=== PATIENT | male | born 1935 | race Hispanic/Latino ===

== ENCOUNTER 2016-08-10 14:17 | Inpatient (IN) | payer MEDICARE ==
[2016-08-10] MEDS ORDERED: ROCEPHIN/NS 1 GM/50 ML 1 GM/50 ML BAG IV ONE (16:00)
[2016-08-10 16:11] LABS: Hematocrit 40.7 % (35.5-45.6); Hemoglobin 13.7 gm/dl (11.8-15.2); Mean Corpuscular HGB Conc 34 % (32-34); Mean Corpuscular Hemoglobin 31 pg (28-32); Mean Corpuscular Volume 92 fl (84-94); Platelet Count 200 K/mm3 (140-440); Red Cell Distribution Width 15.2 % (13.2-15.2); White Blood Count 6.6 K/mm3 (4.5-11.0)
--- NOTE | 2016-08-10 16:14 | XRay Report ---
AP chest x-ray. Findings: The heart size is normal with normal pulmonary vascularity. The lungs are free of acute infiltrates. The left hemidiaphragm is slightly elevated. No pleural fluid is seen. Impression: No acute findings.
[2016-08-10 16:15] LABS: Alanine Aminotransferase 8 units/L (7-56); Albumin 3.6 g/dL (3.9-5); Albumin/Globulin Ratio 1.3 %; Alkaline Phosphatase 56 units/L (35-129); Anion Gap 19 mmol/L; BUN/Creatinine Ratio 17.14; Bilirubin,Total 0.5 mg/dL (0.1-1.2); Blood Urea Nitrogen 12 mg/dL (9-20); Calcium 8.7 mg/dL (8.4-10.2); Carbon Dioxide 21 mmol/L (22-30); Chloride 87.7 mmol/L (98-107); Glucose 89 mg/dL (75-100); Potassium 3.9 mmol/L (3.6-5.0); Sodium 124 mmol/L (137-145); Total Protein 6.3 g/dL (6.3-8.2)
--- NOTE | 2016-08-10 16:15 | XRay Report ---
AP pelvis. Findings: No fractures or other acute findings are identified. Bone mineralization is normal. Extensive vascular calcifications are noted. Impression: No acute findings.
[2016-08-10 16:21] LABS: Bilirubin,Direct < 0.2 mg/dL (0-0.2); Bilirubin,Indirect 0.3 mg/dL; INR 1.2 (0.87-1.13)
[2016-08-10 16:24] LABS: ISTAT Base Excess -5; ISTAT DEVICE 0; ISTAT HCO3 19.5; ISTAT PCO2 31.9 (35-45); ISTAT PH 7.394 (7.35-7.45); ISTAT PO2 57 (80-105); ISTAT SO2 90; ISTAT TCO2 20
[2016-08-10] MEDS ORDERED: DUONEB 0.5 MG-3 MG/3 ML SOLN IH ONE (16:24)
[2016-08-10] MEDS ORDERED: MAGNESIUM SULFATE 2GM/50ML 2 GM/50 ML BAG IV ONE (16:25)
[2016-08-10] MEDS ORDERED: NACL 0.9% 1000 ML 1,000 ML IV ONE ×2 (16:41)
--- NOTE | 2016-08-10 16:53 | Admit Criteria Form ---
Admission Criteria Documentation: HYPONATREMIA; HYPERNATREMIA; HYPOKALEMIA; HYPERKALEMIA; HYPOCALCEMIA; HYPERCALCEMIA Clinical Indications for Inpatient Care (Place 'X' for any and all applicable criteria): Ongoing inpatient care may be indicated for ANY ONE of the following [G](1)(2)(3 )(5): [ X]I. Hyponatremia with ANY ONE of the following: [ X]a) Sodium less than 130 mEq/L (mmol/L) (new) (6)(22) [ ]b) Sodium less than 135 mEq/L (mmol/L) with ANY ONE of the following: [ ]i) Severe medical etiology requiring inpatient management (eg, heart failure, hypovolemia) [ ]ii) Altered mental status [ ]iii) Seizures [ ]II. Hypernatremia with ANY ONE of the following: [ ]a) Sodium greater than 155 mEq/L (mmol/L) [ ]b) Sodium greater than 150 mEq/L (mmol/L) with ANY ONE of the following: [ ] i) Altered mental status [ ]ii) Seizures [ ]iii) Severe medical etiology (eg, hypovolemia, diabetes insipidus) [ ]iv) Severe weakness [ ]v) Severe medical etiology (eg, hemolysis, infection, drug overdose) [ ]III. Hypokalemia with ANY ONE of the following: [ ]a) Potassium less than 2.5 mEq/L (mmol/L) despite outpatient and emergency treatment [ ]b) Potassium less than 3.0 mEq/L (mmol/L) with ANY ONE of the following: [ ]i) Weakness [ ]ii) Cardiac abnormality (eg, arrhythmia, conduction disturbance) [ ]iii) Cardiac ischemia [ ]iv) Ileus [ ]v) Ongoing medical cause requiring inpatient management. ( e.g., acute renal wasting, SIADH) [ ]vi) Other severe symptoms [ ] IV. Hyperkalemia with ANY ONE of the following: [ ]a) Potassium greater than 6.5 mEq/L (mmol/L) [ ]b) Potassium greater than 5 mEq/L (mmol/L) with ANY ONE of the following: [ ]i) Severe ECG findings [H] [ ]ii) Acute worsening of renal failure (creatinine greater than 2.5 mg/dL (221 micromoles/L) or significant elevation for age and size) [ ] V. Hypocalcemia with ANY ONE of the following: [ ]a) Calcium less than 7 mg/dL (1.75 mmol/L) despite outpatient and emergency treatment(19) [ ]b) Calcium less than 8 mg/dL (2 mmol/L) with significant symptoms or findings; examples include: [ ]i) Cardiac abnormality (eg, arrhythmia or conduction disturbance) [ ]ii) Altered mental status [ ]iii) Seizures [ ]iv) Breathing difficulty [ ]v) Muscle spasms [ ]. Hypercalcemia with ANY ONE of the following: [ ]a) Calcium greater than 14 mg/dL (3.5 mmol/L) [ ]b) Calcium greater than 12 mg/dL (3 mmol/L) with ANY ONE of the following: [ ]i) Significant dehydration or hypovolemia as indicated by ANY ONE of the following(2): [ ]1. Clinically significant dehydration as indicated by ANY ONE of the following: [ ]A. Acute loss of weight from baseline (5% of body weight in adults, 9% in pediatric patients) [ ]B. Hemodynamic instability [ ]C. Acute renal failure [ ]D. Serum sodium greater than 150 mEq/L (mmol/L) [ ]2) Dehydration that is persistent indicated by ALL of the following: [ ]A. Oral rehydration therapy not tolerated or insufficient to adequately correct dehydration [ ]B. Appropriate intravenous treatment (eg, fluids ) does not readily correct dehydration ie, after 12 to 24 hours of treatment) [ ]ii) Significant symptoms or findings; examples include: [ ]1) Altered mental status [ ]2) Cardiac abnormality (eg, arrhythmia, conduction disturbance) [ ]3) Cardiac abnormality (eg, arrhythmia, conduction disturbance) The original [facility] content created by [employer] has been revised. The portions of the content which have been revised are identified through the use of italic text or in bold, and [facility] has neither reviewed nor approved the modified material. All other unmodified content is copyright [facility] [employer] Please see references footnoted in the original [facility] edition 2016 Admission Criteria Met: Yes
[2016-08-10 17:01] LABS: Basophils % (Manual) 0 % (0.0-1.8); Blastocytes % (Manual) 0 %; Eosinophils % (Manual) 0 % (0.0-4.3)
[2016-08-10 17:02] LABS: Diff Status Complete; Platelet Estimate Consistent w Auto; RBC Morphology Normal
[2016-08-10 17:04] LABS: Bilirubin,Urine NEG (Negative); Blood,Urine LG (Negative); Ketones,Urine TR mg/dL (Negative); Leukocyte Esterase,Urine NEG (Negative); Mucus,Urine FEW /HPF; Nitrite,Urine NEG (Negative); Urobilinogen,Urine < 2.0 mg/dL (<2.0)
[2016-08-10] MEDS ORDERED: TYLENOL ONE (18:15)
[2016-08-10] MEDS ORDERED: TYLENOL PO ONE (18:22)
--- NOTE | 2016-08-10 18:31 | Emergency Department Report ---
ED General Adult HPI - General Chief complaint: Altered Mental Status Stated complaint: AMS Source: patient, family, EMS Mode of arrival: Stretcher Limitations: Altered Mental Status - History of Present Illness Initial comments: According to the patient's family by he was up and fully ambulatory yesterday. Today he was unable to get out of bed. There was no history of fall. There was no history of focal weakness. Apparently the patient does have a temperature of 101.1. The family did not note any fever or chills. Today he has been confused and acting bizarrely. He was brought to the emergency department for further evaluation. -: Gradual, hour(s) Severity scale (0 -10): 0 Consistency: intermittent Improves with: none Worsens with: none Associated Symptoms: confusion Treatments Prior to Arrival: none - Related Data Home Medications Medication Instructions Recorded Confirmed Last Taken Aspirin EC [Aspirin Enteric Coated 81 mg PO QDAY 08/10/16 08/10/16 08/09/16 TAB] Losartan [Cozaar] 100 mg PO QDAY 08/10/16 08/10/16 08/09/16 Propranolol [Inderal] 80 mg PO QDAY 08/10/16 08/10/16 08/09/16 amLODIPine [Norvasc] 5 mg PO DAILY 08/10/16 08/10/16 08/09/16 Allergies Allergy/AdvReac Type Severity Reaction Status Date / Time No Known Allergies Allergy Verified 08/10/16 14:49 ED Review of Systems ROS: Stated complaint: AMS Other details as noted in HPI Comment: Unobtainable due to pts medical conditions ED Past Medical Hx - Past Medical History Previous Medical History?: Yes Hx COPD: Yes Hx Dementia: Yes Additional medical history: abdominal aneurysm. umbilical hernia - Surgical History Past Surgical History?: Yes Additional Surgical History: Cervical spine surgery. Previous nephrectomy for kidney cancer - Social History Smoking Status: Current Every Day Smoker Substance Use Type: Alcohol - Medications Home Medications: Home Medications Medication Instructions Recorded Confirmed Last Taken Type Aspirin EC [Aspirin Enteric Coated 81 mg PO QDAY 08/10/16 08/10/16 08/09/16 History TAB] Losartan [Cozaar] 100 mg PO QDAY 08/10/16 08/10/16 08/09/16 History Propranolol [Inderal] 80 mg PO QDAY 08/10/16 08/10/16 08/09/16 History amLODIPine [Norvasc] 5 mg PO DAILY 08/10/16 08/10/16 08/09/16 History ED Physical Exam - General Limitations: Altered Mental Status General appearance: other (confused) - Head Head exam: Present: atraumatic, normocephalic - Eye Eye exam: Present: normal appearance. Absent: scleral icterus - ENT ENT exam: Present: mucous membranes moist - Neck Neck exam: Present: normal inspection - Respiratory Respiratory exam: Present: wheezes, decreased breath sounds, other (very increased AP diameter/barrel chest) - Cardiovascular Cardiovascular Exam: Present: regular rate, normal rhythm. Absent: systolic murmur, diastolic murmur, rubs, gallop - GI/Abdominal GI/Abdominal exam: Present: soft, normal bowel sounds, hernia (large reducible right inguinal hernia). Absent: distended, tenderness, guarding, rebound - Neurological Exam Neurological exam: Present: other (no apparent focal deficits) - Psychiatric Psychiatric exam: Present: anxious, flat affect - Skin Skin exam: Present: warm, dry, intact, normal color. Absent: rash ED Course Vital Signs 08/10/16 08/10/16 08/10/16 14:49 14:59 15:58 Temperature 101.1 F H Pulse Rate 84 100 H Pulse Rate [ Anterior Bilateral Throughout] Respiratory 22 22 20 Rate Respiratory Rate [Anterior Bilateral Throughout] Blood Pressure 141/100 Blood Pressure 141/100 126/75 [left arm] O2 Sat by Pulse 94 94 96 Oximetry 08/10/16 08/10/16 08/10/16 16:36 16:44 16:50 Temperature Pulse Rate 93 H 86 Pulse Rate [ 83 Anterior Bilateral Throughout] Respiratory 30 H 34 H Rate Respiratory 20 Rate [Anterior Bilateral Throughout] Blood Pressure Blood Pressure [left arm] O2 Sat by Pulse 97 95 Oximetry 08/10/16 08/10/16 08/10/16 17:00 17:10 17:20 Temperature Pulse Rate 98 H 98 H 106 H Pulse Rate [ 92 H Anterior Bilateral Throughout] Respiratory 32 H 33 H 29 H Rate Respiratory 20 Rate [Anterior Bilateral Throughout] Blood Pressure 114/81 114/81 Blood Pressure [left arm] O2 Sat by Pulse 96 97 94 Oximetry 08/10/16 08/10/16 08/10/16 17:30 17:40 17:51 Temperature Pulse Rate 99 H 94 H Pulse Rate [ Anterior Bilateral Throughout] Respiratory 31 H 27 H 28 H Rate Respiratory Rate [Anterior Bilateral Throughout] Blood Pressure 114/81 114/81 Blood Pressure [left arm] O2 Sat by Pulse 92 92 Oximetry 08/10/16 08/10/16 08/10/16 18:01 18:11 18:21 Temperature 99.4 F Pulse Rate 101 H 85 Pulse Rate [ Anterior Bilateral Throughout] Respiratory 27 H 28 H Rate Respiratory Rate [Anterior Bilateral Throughout] Blood Pressure 124/81 124/81 Blood Pressure [left arm] O2 Sat by Pulse 91 Oximetry - Reevaluation(s) Reevaluation #1: Patient was found to be substantially hyponatremic. He is somewhat via depleted. He was started on IV fluids. Blood cultures were obtained. His lactic acid level was normal. His white blood cell count was normal. His chest x-ray and urine did not show any focus of infection. He was given steroids magnesium and DuoNeb nebs for his COPD exacerbation. He was admitted to the hospitalist service further care and evaluation. Dr. Blanchard did come to see him. He was admitted by Dr. Ambriz. Did order a CT of his head in consideration of his unexplained hyponatremia as well as altered mental status. 08/10/16 18:58 Reevaluation #2: Reexamination the patient's respiratory status had improved. His respiratory rate was diminished and his lungs sounded clear. 08/10/16 19:00 ED Medical Decision Making - Lab Data Result diagrams: 08/10/16 15:28 08/10/16 15:28 Critical care attestation.: If time is entered above; I have spent that time in minutes in the direct care of this critically ill patient, excluding procedure time. ED Disposition Clinical Impression: COPD with exacerbation, Hypoxia, Hyponatremia Altered mental status Qualifiers: Altered mental status type: delirium Qualified Code(s): R41.0 - Disorientation , unspecified Disposition: OP ADMITTED IP TO THIS HOSP Is pt being admited?: Yes Does the pt Need Aspirin: No (not until CT of the head can be cleared) Instructions: Chronic Obstructive Pulmonary Disease (ED) Referrals: PRIMARY CARE, [Primary Care Provider] - 3-5 Days Time of Disposition: 19:01
--- NOTE | 2016-08-10 19:37 | Cat Scan Report ---
FINAL REPORT EXAM: CT HEAD/BRAIN WO CON HISTORY: ams TECHNIQUE: CT head without contrast PRIORS: None. FINDINGS: No acute intra-axial or extra-axial hemorrhage is identified. There is no evidence of midline shift or mass effect. The ventricles and sulci are within normal limits. Weber-white matter differentiation is intact. No acute parenchymal abnormalities seen. There are patchy and confluent hypodensities within the supratentorial white matter. Is complete opacification of the left maxillary sinus with expansile lesion extending into nasal cavity likely reflecting a mucocele. 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
--- NOTE | 2016-08-10 20:49 | History and Physical Report ---
History of Present Illness Date of examination: 08/10/16 Date of admission: 08/10/2016 Chief complaint: Increasing SOB Alteredd Sensorium Unable to walk for one day History of present illness: 81 y/o WM with hx of HTN COPD brought in by family for altered sensorium and increasing SOB.Also unable to walk since AM. Fever of 101. Continues to smoke pack a day.Cough productive of mucoid sputum.No trauma. Past History Past Medical History: COPD, hypertension, other (Dementia AAA umblical hernia) Medications and Allergies Allergies Allergy/AdvReac Type Severity Reaction Status Date / Time No Known Allergies Allergy Verified 08/10/16 14:49 Home Medications Medication Instructions Recorded Confirmed Last Taken Type Aspirin EC [Aspirin Enteric Coated 81 mg PO QDAY 08/10/16 08/10/16 08/09/16 History TAB] Losartan [Cozaar] 100 mg PO QDAY 08/10/16 08/10/16 08/09/16 History Propranolol [Inderal] 80 mg PO QDAY 08/10/16 08/10/16 08/09/16 History amLODIPine [Norvasc] 5 mg PO DAILY 08/10/16 08/10/16 08/09/16 History Active Meds: Active Medications Sodium Chloride (Nacl 0.9% 1000 Ml) 1,000 mls @ 125 mls/hr IV ONCE ONE Stop: 08/11/16 00:40 Last Admin: 08/10/16 19:51 Dose: 125 mls/hr Review of Systems All systems: negative Constitutional: fever, fatigue, weakness Cardiovascular: shortness of breath Respiratory: cough with sputum, shortness of breath, dyspnea on exertion, congestion, wheezing Musculoskeletal: muscle weakness (Both Lower extremity weakness), muscle cramps Exam - Constitutional Vitals: Temp Pulse Resp BP Pulse Ox 99.4 F 91 H 18 127/86 96 08/10/16 18:21 08/10/16 19:15 08/10/16 19:15 08/10/16 19:15 08/10/16 19:15 General appearance: Present: no acute distress, well-nourished - EENT Eyes: Present: PERRL ENT: hearing intact, clear oral mucosa - Neck Neck: Present: supple, normal ROM - Respiratory Respiratory effort: normal Respiratory: bilateral: CTA, rhonchi, wheezing - Cardiovascular Heart Sounds: Present: S1 & S2. Absent: rub, click - Extremities Extremities: pulses symmetrical, No edema Peripheral Pulses: within normal limits - Abdominal General gastrointestinal: Present: soft, non-tender, non-distended, normal bowel sounds Male genitourinary: Present: normal - Integumentary Integumentary: Present: clear, warm, dry - Musculoskeletal Musculoskeletal: gait normal, strength equal bilaterally - Psychiatric Psychiatric: appropriate mood/affect, cooperative - Neurologic Neurologic: CNII-XII intact, moves all extremities - Allied Health Allied health notes reviewed: nursing Results - Labs CBC & Chem 7: 08/10/16 15:28 08/10/16 15:28 Labs: Abnormal lab results 08/10/16 08/10/16 08/10/16 Range/Units 15:28 15:28 15:28 Lymphocytes % (Manual) 7.0 L (13.4-35.0) % Monocytes % (Manual) 26.0 H (0.0-7.3) % Lymphocytes # (Manual) 0.5 L (1.2-5.4) K/mm3 Monocytes # (Manual) 1.7 H (0.0-0.8) K/mm3 PT 15.1 H (12.2-14.9) Sec. INR 1.20 H (0.87-1.13) APTT 38.0 H (24.2-36.6) Sec. POC ABG pCO2 (35-45) POC ABG pO2 (80-105) Sodium 124 L (137-145) mmol/L Chloride 87.7 L (98-107) mmol/L Carbon Dioxide 21 L (22-30) mmol/L Creatinine 0.7 L (0.8-1.5) mg/dL Albumin 3.6 L (3.9-5) g/dL 08/10/16 Range/Units 16:12 Lymphocytes % (Manual) (13.4-35.0) % Monocytes % (Manual) (0.0-7.3) % Lymphocytes # (Manual) (1.2-5.4) K/mm3 Monocytes # (Manual) (0.0-0.8) K/mm3 PT (12.2-14.9) Sec. INR (0.87-1.13) APTT (24.2-36.6) Sec. POC ABG pCO2 31.9 L (35-45) POC ABG pO2 57 L (80-105) Sodium (137-145) mmol/L Chloride (98-107) mmol/L Carbon Dioxide (22-30) mmol/L Creatinine (0.8-1.5) mg/dL Albumin (3.9-5) g/dL Short CBC 08/10/16 Range/Units 15:28 WBC 6.6 (4.5-11.0) K/mm3 Hgb 13.7 (11.8-15.2) gm/dl Hct 40.7 (35.5-45.6) % Plt Count 200 (140-440) K/mm3 BMP 08/10/16 15:28 Sodium 124 L Potassium 3.9 Chloride 87.7 L Carbon Dioxide 21 L BUN 12 Creatinine 0.7 L Glucose 89 Calcium 8.7 Liver Function 08/10/16 Range/Units 15:28 Total Bilirubin 0.5 (0.1-1.2) mg/dL Direct Bilirubin < 0.2 (0-0.2) mg/dL AST 22 (5-40) units/L ALT 8 (7-56) units/L Alkaline Phosphatase 56 (35-129) units/L Albumin 3.6 L (3.9-5) g/dL Urine 08/10/16 Range/Units Unknown Urine Color Yellow (Yellow) Urine pH 6.0 (5.0-7.0) Ur Specific [place] 1.013 (1.003-1.030) Urine Protein 100 mg/dl (Negative) mg/dL Urine Glucose (UA) Neg (Negative) mg/dL - Imaging and Cardiology EKG: report reviewed (Non specific ST T wave changes) Chest x-ray: report reviewed (No acute process) Assessment and Plan - Patient Problems (1) COPD with exacerbation Current Visit: Yes Status: Acute Plan to address problem: ABX +Steroids+Duonebs (2) Altered mental status Current Visit: Yes Status: Acute Qualifiers: Altered mental status type: delirium Coma depth: C Coma timing: C Qualified Code(s): R41.0 - Disorientation, unspecified Plan to address problem: Swc to Hypoxia (3) Hyponatremia Current Visit: Yes Status: Acute Plan to address problem: 3 percent saline at 40 ml /hr for a total of 500 Urine lytes ordered. R/o SIADH Not on any diuretics (4) HTN (hypertension) Current Visit: Yes Status: Chronic Qualifiers: Hypertension type: essential hypertension Qualified Code(s): I10 - Essential (primary) hypertension Plan to address problem: Cont anti hypertensives loartan and Amlodipine. Will hold/DC propranolol because of obstructive airway disease.Will increase Norvasc to 10 mg po qd (5) Hypoxia Current Visit: Yes Status: Acute Plan to address problem: Supplemenal O2 (6) Debility Current Visit: Yes Status: Acute Plan to address problem: Sec to Hyponatremia.Should be able to walk once Na is corrected.PT ordered (7) DVT prophylaxis Current Visit: Yes Status: Acute Plan to address problem: Lovenox 40 mg sq qd
[2016-08-10] MEDS ORDERED: MILK OF MAGNESIA PO PRN (20:50)
[2016-08-10] MEDS ORDERED: DULCOLAX PR PRN (20:50)
[2016-08-10] MEDS ORDERED: DILAUDID IV PRN (20:50)
[2016-08-10] MEDS ORDERED: TYLENOL PO PRN (20:50)
[2016-08-10] MEDS ORDERED: AMBIEN PO PRN (20:50)
[2016-08-10] MEDS ORDERED: PERCOCET 5/325 PO PRN (20:50)
[2016-08-10] MEDS ORDERED: ZOFRAN IV PRN (20:50)
[2016-08-10] MEDS ORDERED: DUONEB 0.5 MG-3 MG/3 ML SOLN IH PRN (20:59)
[2016-08-10] MEDS ORDERED: NON-FORMULARY (Losartan [Cozaar] 100 MG) PO SCH (21:00)
[2016-08-10] MEDS ORDERED: NACL 0.9% 1000 ML 1,000 ML IV SCH (21:00)
[2016-08-10] MEDS ORDERED: PROVENTIL IH PRN (21:15)
[2016-08-10] MEDS: NORVASC PO SCH (21:54)
[2016-08-10] MEDS ORDERED: NACL 3% 500 ML IV ONE (22:00)
[2016-08-10] MEDS: DUONEB 0.5 MG-3 MG/3 ML SOLN IH SCH (22:13)
[2016-08-10] MEDS: ROCEPHIN/NS 2 GM/100 ML 2 GM/100 ML BAG IV SCH (23:21)
[2016-08-10] MEDS: INDERAL PO SCH (23:22)
[2016-08-10] MEDS: COZAAR PO SCH ×2 (23:23→23:28)
[2016-08-10] MEDS: ZITHROMAX 500 MG in NACL 0.9% 250ML 250 ML IV SCH (23:30)
[2016-08-11] MEDS: DUONEB 0.5 MG-3 MG/3 ML SOLN IH SCH ×4 (02:29→20:15)
[2016-08-11 02:54] LABS: Basophils % (Auto) 0.3 % (0.0-1.8); Hematocrit 40.1 % (35.5-45.6); Hemoglobin 13.4 gm/dl (11.8-15.2); Mean Corpuscular HGB Conc 33 % (32-34); Mean Corpuscular Hemoglobin 31 pg (28-32); Mean Corpuscular Volume 92 fl (84-94); Platelet Count 180 K/mm3 (140-440); Red Blood Count 4.37 M/mm3 (3.65-5.03); White Blood Count 4.8 K/mm3 (4.5-11.0)
[2016-08-11 03:19] LABS: Alanine Aminotransferase 9 units/L (7-56); Albumin 3.1 g/dL (3.9-5); Albumin/Globulin Ratio 1.3 %; Alkaline Phosphatase 47 units/L (35-129); Anion Gap 18 mmol/L; BUN/Creatinine Ratio 17.14; Bilirubin,Total 0.2 mg/dL (0.1-1.2); Blood Urea Nitrogen 12 mg/dL (9-20); Calcium 8.1 mg/dL (8.4-10.2); Carbon Dioxide 21 mmol/L (22-30); Chloride 96.7 mmol/L (98-107); Glucose 126 mg/dL (75-100); Potassium 3.6 mmol/L (3.6-5.0); Sodium 132 mmol/L (137-145); Total Protein 5.5 g/dL (6.3-8.2)
[2016-08-11] MEDS: INDERAL PO SCH (10:00)
[2016-08-11] MEDS: HALFPRIN EC PO SCH (10:20)
[2016-08-11] MEDS: COZAAR PO SCH (10:21)
[2016-08-11] MEDS: NORVASC PO SCH (10:22)
--- NOTE | 2016-08-11 18:58 | Progress Note ---
Assessment and Plan Assessment and plan: Patient is a 81 y/o WM with hx of HTN, Dementia, COPD brought in by family for altered sensorium and increasing SOB, and nonproductive cough. Also unable to walk since AM. Fever of 101 noted on hospital admission.Continues to smoke pack a day.Cough productive of mucoid sputum.No trauma. * Sepsis possible secondary to bronchitis * Baseline dementia although with altered sensorium likely secondary to sepsis- the family patient normally sharp and not unruly as he has been in the past day * Acute metabolic encephalopathy * COPD with acute exacerbation * Hyponatremia rule out SIADH * Hypertension * Acute respiratory failure with hypoxia * Debility with gait abnormality Plan * Continue antibiotics, steroids, DuoNeb's * Follow culture no growth until now. * Sodium level improved will discontinue 3% normal saline. * Fall precautions * Physical therapy evaluate and treat * We'll continue to hold propranolol due to COPD * Continue blood pressure control and losartan and Norvasc * DVT and GI prophylaxis * Discussed case in detail with the patient and family * Incentive spirometer ( History Interval history: Follow-up encephalopathy, pneumonia, shortness of breath Patient seen and examined this morning in no acute distress, waxing and waning mentation. Reports improvement in shortness of breath. But not yet at baseline. Family reports patient has been having mean streak. Denies any chest pain, nausea, vomiting, diarrhea No fever noted blood pressure controlled No adverse events reported to me by nursing staff Hospitalist Physical - Physical exam Narrative exam: VITAL SIGNS: Reviewed. GENERAL: The patient appeared well nourished and normally developed. Vital signs as documented. HEAD: No signs of head trauma. EYES: Pupils are equal. Extraocular motions intact. EARS: Hearing grossly intact. MOUTH: Oropharynx is normal. NECK: No adenopathy, no JVD. CHEST: Chest with crackles breath sounds bilaterally. No wheezes CARDIAC: Regular rate and rhythm. S1 and S2, without murmurs, gallops, or rubs. VASCULAR: 1+ pitting edema. Peripheral pulses normal and equal in all extremities. ABDOMEN: Soft, without detectable tenderness. No sign of distention. No rebound or guarding, and no masses palpated. Bowel Sounds normal. MUSCULOSKELETAL: Good range of motion of all major joints. Extremities without clubbing, cyanosis. 1+ pitting edema. NEUROLOGIC EXAM: Alert and oriented x 3. No focal sensory or strength deficits. Speech normal. Follows commands. PSYCHIATRIC: Mood normal. SKIN: Age appropriate wrinkles some blemishes. Focused exam noted, good capillary refill less than 2 seconds - Constitutional Vitals: Temp Pulse Resp BP Pulse Ox 98.5 F 63 20 149/84 96 08/11/16 04:35 08/11/16 17:54 08/11/16 17:54 08/11/16 17:54 08/11/16 17:54 General appearance: Present: no acute distress, well-nourished Results - Labs CBC & Chem 7: 08/11/16 02:19 08/11/16 17:42 Labs: Laboratory Last Values WBC 4.8 K/mm3 (4.5-11.0) 08/11/16 02:19 RBC 4.37 M/mm3 (3.65-5.03) 08/11/16 02:19 Hgb 13.4 gm/dl (11.8-15.2) 08/11/16 02:19 Hct 40.1 % (35.5-45.6) 08/11/16 02:19 MCV 92 fl (84-94) 08/11/16 02:19 MCH 31 pg (28-32) 08/11/16 02:19 MCHC 33 % (32-34) 08/11/16 02:19 RDW 15.0 % (13.2-15.2) 08/11/16 02:19 Plt Count 180 K/mm3 (140-440) 08/11/16 02:19 Lymph % (Auto) 6.7 % (13.4-35.0) L 08/11/16 02:19 [place] % (Auto) 4.8 % (0.0-7.3) 08/11/16 02:19 Eos % (Auto) 0.0 % (0.0-4.3) 08/11/16 02:19 Baso % (Auto) 0.3 % (0.0-1.8) 08/11/16 02:19 Lymph # 0.3 K/mm3 (1.2-5.4) L 08/11/16 02:19 [place] # 0.2 K/mm3 (0.0-0.8) 08/11/16 02:19 Eos # 0.0 K/mm3 (0.0-0.4) 08/11/16 02:19 Baso # 0.0 K/mm3 (0.0-0.1) 08/11/16 02:19 Add Manual Diff Complete 08/10/16 15:28 Total Counted 100 08/10/16 15:28 Seg Neutrophils % 88.2 % (40.0-70.0) H 08/11/16 02:19 Seg Neuts % (Manual) 67.0 % (40.0-70.0) 08/10/16 15:28 Band Neutrophils % 0 % 08/10/16 15:28 Lymphocytes % (Manual) 7.0 % (13.4-35.0) L 08/10/16 15:28 Reactive Lymphs % (Man) 0 % 08/10/16 15:28 Monocytes % (Manual) 26.0 % (0.0-7.3) H 08/10/16 15:28 Eosinophils % (Manual) 0 % (0.0-4.3) 08/10/16 15:28 Basophils % (Manual) 0 % (0.0-1.8) 08/10/16 15:28 Metamyelocytes % 0 % 08/10/16 15:28 Myelocytes % 0 % 08/10/16 15:28 Promyelocytes % 0 % 08/10/16 15:28 Blast Cells % 0 % 08/10/16 15:28 Nucleated RBC % Not Reportable 08/10/16 15:28 Seg Neutrophils # 4.3 K/mm3 (1.8-7.7) 08/11/16 02:19 Seg Neutrophils # Man 4.4 K/mm3 (1.8-7.7) 08/10/16 15:28 Band Neutrophils # 0.0 K/mm3 08/10/16 15:28 Lymphocytes # (Manual) 0.5 K/mm3 (1.2-5.4) L 08/10/16 15:28 Abs React Lymphs (Man) 0.0 K/mm3 08/10/16 15:28 Monocytes # (Manual) 1.7 K/mm3 (0.0-0.8) H 08/10/16 15:28 Eosinophils # (Manual) 0.0 K/mm3 (0.0-0.4) 08/10/16 15:28 Basophils # (Manual) 0.0 K/mm3 (0.0-0.1) 08/10/16 15:28 Metamyelocytes # 0.0 K/mm3 08/10/16 15:28 Myelocytes # 0.0 K/mm3 08/10/16 15:28 Promyelocytes # 0.0 K/mm3 08/10/16 15:28 Blast Cells # 0.0 K/mm3 08/10/16 15:28 WBC Morphology Not Reportable 08/10/16 15:28 Hypersegmented Neuts Not Reportable 08/10/16 15:28 Hyposegmented Neuts Not Reportable 08/10/16 15:28 Hypogranular Neuts Not Reportable 08/10/16 15:28 Smudge Cells Not Reportable 08/10/16 15:28 Toxic Granulation Not Reportable 08/10/16 15:28 Toxic Vacuolation Not Reportable 08/10/16 15:28 Dohle Bodies Not Reportable 08/10/16 15:28 Pelger-Huet Anomaly Not Reportable 08/10/16 15:28 Mónica Rods Not Reportable 08/10/16 15:28 Platelet Estimate Consistent w auto 08/10/16 15:28 Clumped Platelets Not Reportable 08/10/16 15:28 Plt Clumps, EDTA Not Reportable 08/10/16 15:28 Large Platelets Not Reportable 08/10/16 15:28 Giant Platelets Not Reportable 08/10/16 15:28 Platelet Satelliting Not Reportable 08/10/16 15:28 Plt Morphology Comment Not Reportable 08/10/16 15:28 RBC Morphology Normal 08/10/16 15:28 Dimorphic RBCs Not Reportable 08/10/16 15:28 Polychromasia Not Reportable 08/10/16 15:28 Hypochromasia Not Reportable 08/10/16 15:28 Poikilocytosis Not Reportable 08/10/16 15:28 Anisocytosis Not Reportable 08/10/16 15:28 Microcytosis Not Reportable 08/10/16 15:28 Macrocytosis Not Reportable 08/10/16 15:28 Spherocytes Not Reportable 08/10/16 15:28 Pappenheimer Bodies Not Reportable 08/10/16 15:28 Sickle Cells Not Reportable 08/10/16 15:28 Target Cells Not Reportable 08/10/16 15:28 Tear Drop Cells Not Reportable 08/10/16 15:28 Ovalocytes Not Reportable 08/10/16 15:28 Helmet Cells Not Reportable 08/10/16 15:28 [place] Bodies Not Reportable 08/10/16 15:28 [place] Rings Not Reportable 08/10/16 15:28 [place] Cells Not Reportable 08/10/16 15:28 Bite Cells Not Reportable 08/10/16 15:28 Crenated Cell Not Reportable 08/10/16 15:28 Elliptocytes Not Reportable 08/10/16 15:28 Acanthocytes (Spur) Not Reportable 08/10/16 15:28 Rouleaux Not Reportable 08/10/16 15:28 Hemoglobin C Crystals Not Reportable 08/10/16 15:28 Schistocytes Not Reportable 08/10/16 15:28 Malaria parasites Not Reportable 08/10/16 15:28 Fabricio Bodies Not Reportable 08/10/16 15:28 Hem Pathologist Commnt No 08/10/16 15:28 PT 15.1 Sec. (12.2-14.9) H 08/10/16 15:28 INR 1.20 (0.87-1.13) H 08/10/16 15:28 APTT 38.0 Sec. (24.2-36.6) H 08/10/16 15:28 POC ABG pH 7.394 (7.35-7.45) 08/10/16 16:12 POC ABG pCO2 31.9 (35-45) L 08/10/16 16:12 POC ABG pO2 57 (80-105) L 08/10/16 16:12 POC ABG HCO3 19.5 08/10/16 16:12 POC ABG Total CO2 20 08/10/16 16:12 POC ABG O2 Sat 90 08/10/16 16:12 POC ABG Base Excess -5 08/10/16 16:12 FiO2 21 % 08/10/16 16:12 Sodium 135 mmol/L (137-145) L 08/11/16 17:42 Potassium 3.6 mmol/L (3.6-5.0) 08/11/16 02:19 Chloride 96.7 mmol/L (98-107) L 08/11/16 02:19 Carbon Dioxide 21 mmol/L (22-30) L 08/11/16 02:19 Anion Gap 18 mmol/L 08/11/16 02:19 BUN 12 mg/dL (9-20) 08/11/16 02:19 Creatinine 0.7 mg/dL (0.8-1.5) L 08/11/16 02:19 Estimated GFR > 60 ml/min 08/11/16 02:19 BUN/Creatinine Ratio 17.14 % 08/11/16 02:19 Glucose 126 mg/dL (75-100) H 08/11/16 02:19 Lactic Acid 1.3 mmol/L (0.7-2.0) 08/10/16 18:12 Calcium 8.1 mg/dL (8.4-10.2) L 08/11/16 02:19 Total Bilirubin 0.2 mg/dL (0.1-1.2) 08/11/16 02:19 Direct Bilirubin < 0.2 mg/dL (0-0.2) 08/10/16 15:28 Indirect Bilirubin 0.3 mg/dL 08/10/16 15:28 AST 26 units/L (5-40) 08/11/16 02:19 ALT 9 units/L (7-56) 08/11/16 02:19 Alkaline Phosphatase 47 units/L (35-129) 08/11/16 02:19 Troponin T 0.014 ng/mL (0.00-0.029) 08/11/16 02:19 NT-Pro-B Natriuret Pep 3115 pg/mL (0-900) H 08/10/16 15:28 Total Protein 5.5 g/dL (6.3-8.2) L 08/11/16 02:19 Albumin 3.1 g/dL (3.9-5) L 08/11/16 02:19 Albumin/Globulin Ratio 1.3 % 08/11/16 02:19 Urine Color Yellow (Yellow) 08/10/16 Unknown Urine Turbidity Clear (Clear) 08/10/16 Unknown Urine pH 6.0 (5.0-7.0) 08/10/16 Unknown Ur Specific [place] 1.013 (1.003-1.030) 08/10/16 Unknown Urine Protein 100 mg/dl mg/dL (Negative) 08/10/16 Unknown Urine Glucose (UA) Neg mg/dL (Negative) 08/10/16 Unknown Urine Ketones Tr mg/dL (Negative) 08/10/16 Unknown Urine Blood Lg (Negative) 08/10/16 Unknown Urine Nitrite Neg (Negative) 08/10/16 Unknown Urine Bilirubin Neg (Negative) 08/10/16 Unknown Urine Urobilinogen < 2.0 mg/dL (<2.0) 08/10/16 Unknown Ur Leukocyte Esterase Neg (Negative) 08/10/16 Unknown Urine WBC (Auto) 1.0 /HPF (0.0-6.0) 08/10/16 Unknown Urine RBC (Auto) 24.0 /HPF (0.0-6.0) 08/10/16 Unknown Urine Mucus Few /HPF 08/10/16 Unknown - Imaging and Cardiology Chest x-ray: image reviewed (no acute pathology)
[2016-08-12] MEDS: ROCEPHIN/NS 2 GM/100 ML 2 GM/100 ML BAG IV SCH ×2 (01:43→22:39)
[2016-08-12] MEDS: DUONEB 0.5 MG-3 MG/3 ML SOLN IH SCH ×4 (01:56→20:17)
[2016-08-12] MEDS: ZITHROMAX 500 MG in NACL 0.9% 250ML 250 ML IV SCH ×2 (02:18→22:40)
[2016-08-12 06:12] LABS: Anion Gap 19 mmol/L; Blood Urea Nitrogen 15 mg/dL (9-20); Calcium 8.2 mg/dL (8.4-10.2); Carbon Dioxide 23 mmol/L (22-30); Chloride 98.9 mmol/L (98-107); Glucose 136 mg/dL (75-100); Potassium 3.6 mmol/L (3.6-5.0); Sodium 137 mmol/L (137-145)
[2016-08-12] MEDS: INDERAL PO SCH (09:45)
[2016-08-12] MEDS: HALFPRIN EC PO SCH (09:45)
[2016-08-12] MEDS: COZAAR PO SCH (09:45)
[2016-08-12] MEDS: NORVASC PO SCH (09:45)
--- NOTE | 2016-08-12 16:30 | Progress Note ---
Assessment and Plan Assessment and plan: Patient is a 81 y/o WM with hx of HTN, Dementia, COPD brought in by family for altered sensorium and increasing SOB, and nonproductive cough. Also unable to walk since AM. Fever of 101 noted on hospital admission.Continues to smoke pack a day.Cough productive of mucoid sputum.No trauma. * Sepsis possible secondary to bronchitis * Baseline dementia although with altered sensorium likely secondary to sepsis- the family patient normally sharp and not unruly as he has been in the past day * Acute metabolic encephalopathy * COPD with acute exacerbation * Hyponatremia rule out SIADH * Hypertension * Acute respiratory failure with hypoxia * Debility with gait abnormality Plan * Continue antibiotics, steroids, DuoNeb's * Continue restraints * Follow culture no growth until now. * Reviewed sodium changes only improved by 12 mEq in the first 24 hours. * Discussed with primary care physician * We'll discontinue Solu-Medrol and opioids * Fall precautions * Physical therapy evaluate and treat * We'll continue to hold propranolol due to COPD * Continue blood pressure control and losartan and Norvasc * DVT and GI prophylaxis * Discussed case in detail with the patient and family * Continue telemetry and also IV fluids at this time patient tolerated some by mouth * Incentive spirometer ( History Interval history: Follow-up encephalopathy, pneumonia, shortness of breath Patient seen and examined this morning in no acute distress, waxing and waning mentation. He was severely delirious last night requiring safety measures. Although the patient recognizes me today. Still recognizes family members. I did speak with his primary physician. Denies any chest pain, nausea, vomiting, diarrhea No fever noted blood pressure controlled No adverse events reported to me by nursing staff Hospitalist Physical - Physical exam Narrative exam: VITAL SIGNS: Reviewed. GENERAL: The patient appeared well nourished and normally developed. Vital signs as documented. HEAD: No signs of head trauma. EYES: Pupils are equal. Extraocular motions intact. EARS: Hearing grossly intact. MOUTH: Oropharynx is normal. NECK: No adenopathy, no JVD. CHEST: Chest with crackles breath sounds bilaterally. No wheezes CARDIAC: Regular rate and rhythm. S1 and S2, without murmurs, gallops, or rubs. VASCULAR: 1+ pitting edema. Peripheral pulses normal and equal in all extremities. ABDOMEN: Soft, without detectable tenderness. No sign of distention. No rebound or guarding, and no masses palpated. Bowel Sounds normal. MUSCULOSKELETAL: Good range of motion of all major joints. Extremities without clubbing, cyanosis. 1+ pitting edema. NEUROLOGIC EXAM: Alert and oriented x 3. Intermittent delirium No focal sensory or strength deficits. Speech normal. Follows commands. PSYCHIATRIC: Mood normal. SKIN: Age appropriate wrinkles some blemishes. Focused exam noted, good capillary refill less than 2 seconds - Constitutional Vitals: Temp Pulse Resp BP Pulse Ox 98.2 F 87 22 157/91 94 08/12/16 13:35 08/12/16 13:35 08/12/16 13:35 08/12/16 13:35 08/12/16 13:35 General appearance: Present: no acute distress, well-nourished Results - Labs CBC & Chem 7: 08/11/16 02:19 08/12/16 04:55 Labs: Laboratory Last Values WBC 4.8 K/mm3 (4.5-11.0) 08/11/16 02:19 RBC 4.37 M/mm3 (3.65-5.03) 08/11/16 02:19 Hgb 13.4 gm/dl (11.8-15.2) 08/11/16 02:19 Hct 40.1 % (35.5-45.6) 08/11/16 02:19 MCV 92 fl (84-94) 08/11/16 02:19 MCH 31 pg (28-32) 08/11/16 02:19 MCHC 33 % (32-34) 08/11/16 02:19 RDW 15.0 % (13.2-15.2) 08/11/16 02:19 Plt Count 180 K/mm3 (140-440) 08/11/16 02:19 Lymph % (Auto) 6.7 % (13.4-35.0) L 08/11/16 02:19 [place] % (Auto) 4.8 % (0.0-7.3) 08/11/16 02:19 Eos % (Auto) 0.0 % (0.0-4.3) 08/11/16 02:19 Baso % (Auto) 0.3 % (0.0-1.8) 08/11/16 02:19 Lymph # 0.3 K/mm3 (1.2-5.4) L 08/11/16 02:19 [place] # 0.2 K/mm3 (0.0-0.8) 08/11/16 02:19 Eos # 0.0 K/mm3 (0.0-0.4) 08/11/16 02:19 Baso # 0.0 K/mm3 (0.0-0.1) 08/11/16 02:19 Add Manual Diff Complete 08/10/16 15:28 Total Counted 100 08/10/16 15:28 Seg Neutrophils % 88.2 % (40.0-70.0) H 08/11/16 02:19 Seg Neuts % (Manual) 67.0 % (40.0-70.0) 08/10/16 15:28 Band Neutrophils % 0 % 08/10/16 15:28 Lymphocytes % (Manual) 7.0 % (13.4-35.0) L 08/10/16 15:28 Reactive Lymphs % (Man) 0 % 08/10/16 15:28 Monocytes % (Manual) 26.0 % (0.0-7.3) H 08/10/16 15:28 Eosinophils % (Manual) 0 % (0.0-4.3) 08/10/16 15:28 Basophils % (Manual) 0 % (0.0-1.8) 08/10/16 15:28 Metamyelocytes % 0 % 08/10/16 15:28 Myelocytes % 0 % 08/10/16 15:28 Promyelocytes % 0 % 08/10/16 15:28 Blast Cells % 0 % 08/10/16 15:28 Nucleated RBC % Not Reportable 08/10/16 15:28 Seg Neutrophils # 4.3 K/mm3 (1.8-7.7) 08/11/16 02:19 Seg Neutrophils # Man 4.4 K/mm3 (1.8-7.7) 08/10/16 15:28 Band Neutrophils # 0.0 K/mm3 08/10/16 15:28 Lymphocytes # (Manual) 0.5 K/mm3 (1.2-5.4) L 08/10/16 15:28 Abs React Lymphs (Man) 0.0 K/mm3 08/10/16 15:28 Monocytes # (Manual) 1.7 K/mm3 (0.0-0.8) H 08/10/16 15:28 Eosinophils # (Manual) 0.0 K/mm3 (0.0-0.4) 08/10/16 15:28 Basophils # (Manual) 0.0 K/mm3 (0.0-0.1) 08/10/16 15:28 Metamyelocytes # 0.0 K/mm3 08/10/16 15:28 Myelocytes # 0.0 K/mm3 08/10/16 15:28 Promyelocytes # 0.0 K/mm3 08/10/16 15:28 Blast Cells # 0.0 K/mm3 08/10/16 15:28 WBC Morphology Not Reportable 08/10/16 15:28 Hypersegmented Neuts Not Reportable 08/10/16 15:28 Hyposegmented Neuts Not Reportable 08/10/16 15:28 Hypogranular Neuts Not Reportable 08/10/16 15:28 Smudge Cells Not Reportable 08/10/16 15:28 Toxic Granulation Not Reportable 08/10/16 15:28 Toxic Vacuolation Not Reportable 08/10/16 15:28 Dohle Bodies Not Reportable 08/10/16 15:28 Pelger-Huet Anomaly Not Reportable 08/10/16 15:28 Mónica Rods Not Reportable 08/10/16 15:28 Platelet Estimate Consistent w auto 08/10/16 15:28 Clumped Platelets Not Reportable 08/10/16 15:28 Plt Clumps, EDTA Not Reportable 08/10/16 15:28 Large Platelets Not Reportable 08/10/16 15:28 Giant Platelets Not Reportable 08/10/16 15:28 Platelet Satelliting Not Reportable 08/10/16 15:28 Plt Morphology Comment Not Reportable 08/10/16 15:28 RBC Morphology Normal 08/10/16 15:28 Dimorphic RBCs Not Reportable 08/10/16 15:28 Polychromasia Not Reportable 08/10/16 15:28 Hypochromasia Not Reportable 08/10/16 15:28 Poikilocytosis Not Reportable 08/10/16 15:28 Anisocytosis Not Reportable 08/10/16 15:28 Microcytosis Not Reportable 08/10/16 15:28 Macrocytosis Not Reportable 08/10/16 15:28 Spherocytes Not Reportable 08/10/16 15:28 Pappenheimer Bodies Not Reportable 08/10/16 15:28 Sickle Cells Not Reportable 08/10/16 15:28 Target Cells Not Reportable 08/10/16 15:28 Tear Drop Cells Not Reportable 08/10/16 15:28 Ovalocytes Not Reportable 08/10/16 15:28 Helmet Cells Not Reportable 08/10/16 15:28 [place] Bodies Not Reportable 08/10/16 15:28 [place] Rings Not Reportable 08/10/16 15:28 [place] Cells Not Reportable 08/10/16 15:28 Bite Cells Not Reportable 08/10/16 15:28 Crenated Cell Not Reportable 08/10/16 15:28 Elliptocytes Not Reportable 08/10/16 15:28 Acanthocytes (Spur) Not Reportable 08/10/16 15:28 Rouleaux Not Reportable 08/10/16 15:28 Hemoglobin C Crystals Not Reportable 08/10/16 15:28 Schistocytes Not Reportable 08/10/16 15:28 Malaria parasites Not Reportable 08/10/16 15:28 Fabricio Bodies Not Reportable 08/10/16 15:28 Hem Pathologist Commnt No 08/10/16 15:28 PT 15.1 Sec. (12.2-14.9) H 08/10/16 15:28 INR 1.20 (0.87-1.13) H 08/10/16 15:28 APTT 38.0 Sec. (24.2-36.6) H 08/10/16 15:28 POC ABG pH 7.394 (7.35-7.45) 08/10/16 16:12 POC ABG pCO2 31.9 (35-45) L 08/10/16 16:12 POC ABG pO2 57 (80-105) L 08/10/16 16:12 POC ABG HCO3 19.5 08/10/16 16:12 POC ABG Total CO2 20 08/10/16 16:12 POC ABG O2 Sat 90 08/10/16 16:12 POC ABG Base Excess -5 08/10/16 16:12 FiO2 21 % 08/10/16 16:12 Sodium 137 mmol/L (137-145) 08/12/16 04:55 Potassium 3.6 mmol/L (3.6-5.0) 08/12/16 04:55 Chloride 98.9 mmol/L (98-107) 08/12/16 04:55 Carbon Dioxide 23 mmol/L (22-30) 08/12/16 04:55 Anion Gap 19 mmol/L 08/12/16 04:55 BUN 15 mg/dL (9-20) 08/12/16 04:55 Creatinine 0.6 mg/dL (0.8-1.5) L 08/12/16 04:55 Estimated GFR > 60 ml/min 08/12/16 04:55 BUN/Creatinine Ratio 25.00 % 08/12/16 04:55 Glucose 136 mg/dL (75-100) H 08/12/16 04:55 POC Glucose 134 (70-105) H 08/11/16 21:52 Lactic Acid 1.3 mmol/L (0.7-2.0) 08/10/16 18:12 Calcium 8.2 mg/dL (8.4-10.2) L 08/12/16 04:55 Total Bilirubin 0.2 mg/dL (0.1-1.2) 08/11/16 02:19 Direct Bilirubin < 0.2 mg/dL (0-0.2) 08/10/16 15:28 Indirect Bilirubin 0.3 mg/dL 08/10/16 15:28 AST 26 units/L (5-40) 08/11/16 02:19 ALT 9 units/L (7-56) 08/11/16 02:19 Alkaline Phosphatase 47 units/L (35-129) 08/11/16 02:19 Troponin T 0.014 ng/mL (0.00-0.029) 08/11/16 02:19 NT-Pro-B Natriuret Pep 3115 pg/mL (0-900) H 08/10/16 15:28 Total Protein 5.5 g/dL (6.3-8.2) L 08/11/16 02:19 Albumin 3.1 g/dL (3.9-5) L 08/11/16 02:19 Albumin/Globulin Ratio 1.3 % 08/11/16 02:19 Urine Color Yellow (Yellow) 08/10/16 Unknown Urine Turbidity Clear (Clear) 08/10/16 Unknown Urine pH 6.0 (5.0-7.0) 08/10/16 Unknown Ur Specific [place] 1.013 (1.003-1.030) 08/10/16 Unknown Urine Protein 100 mg/dl mg/dL (Negative) 08/10/16 Unknown Urine Glucose (UA) Neg mg/dL (Negative) 08/10/16 Unknown Urine Ketones Tr mg/dL (Negative) 08/10/16 Unknown Urine Blood Lg (Negative) 08/10/16 Unknown Urine Nitrite Neg (Negative) 08/10/16 Unknown Urine Bilirubin Neg (Negative) 08/10/16 Unknown Urine Urobilinogen < 2.0 mg/dL (<2.0) 08/10/16 Unknown Ur Leukocyte Esterase Neg (Negative) 08/10/16 Unknown Urine WBC (Auto) 1.0 /HPF (0.0-6.0) 08/10/16 Unknown Urine RBC (Auto) 24.0 /HPF (0.0-6.0) 08/10/16 Unknown Urine Mucus Few /HPF 08/10/16 Unknown
[2016-08-12] MEDS ORDERED: HABITROL TD ONE (21:51)
[2016-08-13] MEDS: DUONEB 0.5 MG-3 MG/3 ML SOLN IH SCH ×4 (03:01→20:00)
[2016-08-13] MEDS: HALFPRIN EC PO SCH (11:14)
[2016-08-13] MEDS: NORVASC PO SCH (11:15)
[2016-08-13] MEDS: COZAAR PO SCH (11:17)
--- NOTE | 2016-08-13 15:37 | Progress Note ---
Assessment and Plan Assessment and plan: Patient is a 81 y/o WM with hx of HTN, Dementia, COPD brought in by family for altered sensorium and increasing SOB, and nonproductive cough. Also unable to walk since AM. Fever of 101 noted on hospital admission.Continues to smoke pack a day.Cough productive of mucoid sputum.No trauma. * Sepsis possible secondary to bronchitis * Baseline dementia although with altered sensorium likely secondary to sepsis- the family patient normally sharp and not unruly as he has been in the past day * Acute metabolic encephalopathy * COPD with acute exacerbation * Hyponatremia rule out SIADH * Hypertension * Acute respiratory failure with hypoxia * Debility with gait abnormality Plan * Clinically improving. Continue antibiotics, steroids, DuoNeb's * Anticipate discharge Monday schedule a separate facility. * Repeat chest x-ray in 4-6 weeks shows patient * Follow culture no growth until now. * Reviewed sodium changes only improved by 12 mEq in the first 24 hours. * Discussed with primary care physician * Continue to hold Solu-Medrol and opioids * Fall precautions * Physical therapy evaluate and treat * Continue blood pressure control and losartan and Norvasc * DVT and GI prophylaxis * Discussed case in detail with the patient and family * Continue telemetry and also IV fluids at this time patient tolerated some by mouth * Incentive spirometer ( History Interval history: Follow-up encephalopathy, pneumonia, shortness of breath Patient seen and examined this morning in no acute distress, mentation improved this morning. Less delirious overnight. Restraints off. Denies any chest pain, nausea, vomiting, diarrhea No fever noted blood pressure controlled No adverse events reported to me by nursing staff Hospitalist Physical - Physical exam Narrative exam: VITAL SIGNS: Reviewed. GENERAL: The patient appeared well nourished and normally developed. Vital signs as documented. HEAD: No signs of head trauma. EYES: Pupils are equal. Extraocular motions intact. EARS: Hearing grossly intact. MOUTH: Oropharynx is normal. NECK: No adenopathy, no JVD. CHEST: Chest with crackles breath sounds bilaterally. No wheezes CARDIAC: Regular rate and rhythm. S1 and S2, without murmurs, gallops, or rubs. VASCULAR: Trace edema. Peripheral pulses normal and equal in all extremities. ABDOMEN: Soft, without detectable tenderness. No sign of distention. No rebound or guarding, and no masses palpated. Bowel Sounds normal. MUSCULOSKELETAL: Good range of motion of all major joints. Extremities without clubbing, cyanosis. Trace edema. NEUROLOGIC EXAM: Alert and oriented x 3. Intermittent delirium No focal sensory or strength deficits. Speech normal. Follows commands. PSYCHIATRIC: Mood normal. SKIN: Age appropriate wrinkles some blemishes. Focused exam noted, good capillary refill less than 2 seconds - Constitutional Vitals: Temp Pulse Resp BP Pulse Ox 97.9 F 53 L 18 126/90 96 08/13/16 09:26 08/13/16 13:25 08/13/16 13:25 08/13/16 11:17 08/13/16 09:26 General appearance: Present: no acute distress, well-nourished Results - Labs CBC & Chem 7: 08/11/16 02:19 08/12/16 04:55 Labs: Laboratory Last Values WBC 4.8 K/mm3 (4.5-11.0) 08/11/16 02:19 RBC 4.37 M/mm3 (3.65-5.03) 08/11/16 02:19 Hgb 13.4 gm/dl (11.8-15.2) 08/11/16 02:19 Hct 40.1 % (35.5-45.6) 08/11/16 02:19 MCV 92 fl (84-94) 08/11/16 02:19 MCH 31 pg (28-32) 08/11/16 02:19 MCHC 33 % (32-34) 08/11/16 02:19 RDW 15.0 % (13.2-15.2) 08/11/16 02:19 Plt Count 180 K/mm3 (140-440) 08/11/16 02:19 Lymph % (Auto) 6.7 % (13.4-35.0) L 08/11/16 02:19 [place] % (Auto) 4.8 % (0.0-7.3) 08/11/16 02:19 Eos % (Auto) 0.0 % (0.0-4.3) 08/11/16 02:19 Baso % (Auto) 0.3 % (0.0-1.8) 08/11/16 02:19 Lymph # 0.3 K/mm3 (1.2-5.4) L 08/11/16 02:19 [place] # 0.2 K/mm3 (0.0-0.8) 08/11/16 02:19 Eos # 0.0 K/mm3 (0.0-0.4) 08/11/16 02:19 Baso # 0.0 K/mm3 (0.0-0.1) 08/11/16 02:19 Add Manual Diff Complete 08/10/16 15:28 Total Counted 100 08/10/16 15:28 Seg Neutrophils % 88.2 % (40.0-70.0) H 08/11/16 02:19 Seg Neuts % (Manual) 67.0 % (40.0-70.0) 08/10/16 15:28 Band Neutrophils % 0 % 08/10/16 15:28 Lymphocytes % (Manual) 7.0 % (13.4-35.0) L 08/10/16 15:28 Reactive Lymphs % (Man) 0 % 08/10/16 15:28 Monocytes % (Manual) 26.0 % (0.0-7.3) H 08/10/16 15:28 Eosinophils % (Manual) 0 % (0.0-4.3) 08/10/16 15:28 Basophils % (Manual) 0 % (0.0-1.8) 08/10/16 15:28 Metamyelocytes % 0 % 08/10/16 15:28 Myelocytes % 0 % 08/10/16 15:28 Promyelocytes % 0 % 08/10/16 15:28 Blast Cells % 0 % 08/10/16 15:28 Nucleated RBC % Not Reportable 08/10/16 15:28 Seg Neutrophils # 4.3 K/mm3 (1.8-7.7) 08/11/16 02:19 Seg Neutrophils # Man 4.4 K/mm3 (1.8-7.7) 08/10/16 15:28 Band Neutrophils # 0.0 K/mm3 08/10/16 15:28 Lymphocytes # (Manual) 0.5 K/mm3 (1.2-5.4) L 08/10/16 15:28 Abs React Lymphs (Man) 0.0 K/mm3 08/10/16 15:28 Monocytes # (Manual) 1.7 K/mm3 (0.0-0.8) H 08/10/16 15:28 Eosinophils # (Manual) 0.0 K/mm3 (0.0-0.4) 08/10/16 15:28 Basophils # (Manual) 0.0 K/mm3 (0.0-0.1) 08/10/16 15:28 Metamyelocytes # 0.0 K/mm3 08/10/16 15:28 Myelocytes # 0.0 K/mm3 08/10/16 15:28 Promyelocytes # 0.0 K/mm3 08/10/16 15:28 Blast Cells # 0.0 K/mm3 08/10/16 15:28 WBC Morphology Not Reportable 08/10/16 15:28 Hypersegmented Neuts Not Reportable 08/10/16 15:28 Hyposegmented Neuts Not Reportable 08/10/16 15:28 Hypogranular Neuts Not Reportable 08/10/16 15:28 Smudge Cells Not Reportable 08/10/16 15:28 Toxic Granulation Not Reportable 08/10/16 15:28 Toxic Vacuolation Not Reportable 08/10/16 15:28 Dohle Bodies Not Reportable 08/10/16 15:28 Pelger-Huet Anomaly Not Reportable 08/10/16 15:28 Mónica Rods Not Reportable 08/10/16 15:28 Platelet Estimate Consistent w auto 08/10/16 15:28 Clumped Platelets Not Reportable 08/10/16 15:28 Plt Clumps, EDTA Not Reportable 08/10/16 15:28 Large Platelets Not Reportable 08/10/16 15:28 Giant Platelets Not Reportable 08/10/16 15:28 Platelet Satelliting Not Reportable 08/10/16 15:28 Plt Morphology Comment Not Reportable 08/10/16 15:28 RBC Morphology Normal 08/10/16 15:28 Dimorphic RBCs Not Reportable 08/10/16 15:28 Polychromasia Not Reportable 08/10/16 15:28 Hypochromasia Not Reportable 08/10/16 15:28 Poikilocytosis Not Reportable 08/10/16 15:28 Anisocytosis Not Reportable 08/10/16 15:28 Microcytosis Not Reportable 08/10/16 15:28 Macrocytosis Not Reportable 08/10/16 15:28 Spherocytes Not Reportable 08/10/16 15:28 Pappenheimer Bodies Not Reportable 08/10/16 15:28 Sickle Cells Not Reportable 08/10/16 15:28 Target Cells Not Reportable 08/10/16 15:28 Tear Drop Cells Not Reportable 08/10/16 15:28 Ovalocytes Not Reportable 08/10/16 15:28 Helmet Cells Not Reportable 08/10/16 15:28 [place] Bodies Not Reportable 08/10/16 15:28 [place] Rings Not Reportable 08/10/16 15:28 [place] Cells Not Reportable 08/10/16 15:28 Bite Cells Not Reportable 08/10/16 15:28 Crenated Cell Not Reportable 08/10/16 15:28 Elliptocytes Not Reportable 08/10/16 15:28 Acanthocytes (Spur) Not Reportable 08/10/16 15:28 Rouleaux Not Reportable 08/10/16 15:28 Hemoglobin C Crystals Not Reportable 08/10/16 15:28 Schistocytes Not Reportable 08/10/16 15:28 Malaria parasites Not Reportable 08/10/16 15:28 Fabricio Bodies Not Reportable 08/10/16 15:28 Hem Pathologist Commnt No 08/10/16 15:28 PT 15.1 Sec. (12.2-14.9) H 08/10/16 15:28 INR 1.20 (0.87-1.13) H 08/10/16 15:28 APTT 38.0 Sec. (24.2-36.6) H 08/10/16 15:28 POC ABG pH 7.394 (7.35-7.45) 08/10/16 16:12 POC ABG pCO2 31.9 (35-45) L 08/10/16 16:12 POC ABG pO2 57 (80-105) L 08/10/16 16:12 POC ABG HCO3 19.5 08/10/16 16:12 POC ABG Total CO2 20 08/10/16 16:12 POC ABG O2 Sat 90 08/10/16 16:12 POC ABG Base Excess -5 08/10/16 16:12 FiO2 21 % 08/10/16 16:12 Sodium 137 mmol/L (137-145) 08/12/16 04:55 Potassium 3.6 mmol/L (3.6-5.0) 08/12/16 04:55 Chloride 98.9 mmol/L (98-107) 08/12/16 04:55 Carbon Dioxide 23 mmol/L (22-30) 08/12/16 04:55 Anion Gap 19 mmol/L 08/12/16 04:55 BUN 15 mg/dL (9-20) 08/12/16 04:55 Creatinine 0.6 mg/dL (0.8-1.5) L 08/12/16 04:55 Estimated GFR > 60 ml/min 08/12/16 04:55 BUN/Creatinine Ratio 25.00 % 08/12/16 04:55 Glucose 136 mg/dL (75-100) H 08/12/16 04:55 POC Glucose 134 (70-105) H 08/11/16 21:52 Lactic Acid 1.3 mmol/L (0.7-2.0) 08/10/16 18:12 Calcium 8.2 mg/dL (8.4-10.2) L 08/12/16 04:55 Total Bilirubin 0.2 mg/dL (0.1-1.2) 08/11/16 02:19 Direct Bilirubin < 0.2 mg/dL (0-0.2) 08/10/16 15:28 Indirect Bilirubin 0.3 mg/dL 08/10/16 15:28 AST 26 units/L (5-40) 08/11/16 02:19 ALT 9 units/L (7-56) 08/11/16 02:19 Alkaline Phosphatase 47 units/L (35-129) 08/11/16 02:19 Troponin T 0.014 ng/mL (0.00-0.029) 08/11/16 02:19 NT-Pro-B Natriuret Pep 3115 pg/mL (0-900) H 08/10/16 15:28 Total Protein 5.5 g/dL (6.3-8.2) L 08/11/16 02:19 Albumin 3.1 g/dL (3.9-5) L 08/11/16 02:19 Albumin/Globulin Ratio 1.3 % 08/11/16 02:19 Urine Color Yellow (Yellow) 08/10/16 Unknown Urine Turbidity Clear (Clear) 08/10/16 Unknown Urine pH 6.0 (5.0-7.0) 08/10/16 Unknown Ur Specific [place] 1.013 (1.003-1.030) 08/10/16 Unknown Urine Protein 100 mg/dl mg/dL (Negative) 08/10/16 Unknown Urine Glucose (UA) Neg mg/dL (Negative) 08/10/16 Unknown Urine Ketones Tr mg/dL (Negative) 08/10/16 Unknown Urine Blood Lg (Negative) 08/10/16 Unknown Urine Nitrite Neg (Negative) 08/10/16 Unknown Urine Bilirubin Neg (Negative) 08/10/16 Unknown Urine Urobilinogen < 2.0 mg/dL (<2.0) 08/10/16 Unknown Ur Leukocyte Esterase Neg (Negative) 08/10/16 Unknown Urine WBC (Auto) 1.0 /HPF (0.0-6.0) 08/10/16 Unknown Urine RBC (Auto) 24.0 /HPF (0.0-6.0) 08/10/16 Unknown Urine Mucus Few /HPF 08/10/16 Unknown
[2016-08-13] MEDS: INDERAL PO SCH (20:30)
[2016-08-13] MEDS: ZITHROMAX 500 MG in NACL 0.9% 250ML 250 ML IV SCH (22:25)
[2016-08-13] MEDS: ROCEPHIN/NS 2 GM/100 ML 2 GM/100 ML BAG IV SCH (22:26)
[2016-08-14] MEDS: DUONEB 0.5 MG-3 MG/3 ML SOLN IH SCH ×4 (01:46→19:24)
--- NOTE | 2016-08-14 08:31 | Progress Note ---
Assessment and Plan Assessment and plan: Patient is a 81 y/o WM with hx of HTN, Dementia, COPD brought in by family for altered sensorium and increasing SOB, and nonproductive cough. Also unable to walk since AM. Fever of 101 noted on hospital admission.Continues to smoke pack a day.Cough productive of mucoid sputum.No trauma. * Sepsis possible secondary to bronchitis * Baseline dementia although with altered sensorium likely secondary to sepsis- the family patient normally sharp and not unruly as he has been in the past day * Acute metabolic encephalopathy * COPD with acute exacerbation * Hyponatremia rule out SIADH * Hypertension * Acute respiratory failure with hypoxia * Debility with gait abnormality Plan * Clinically improving. Continue antibiotics, steroids, DuoNeb's * Anticipate discharge Monday to senior care facility. * Repeat chest x-ray in 4-6 weeks shows patient * Follow culture no growth until now. * Reviewed sodium changes only improved by 12 mEq in the first 24 hours. * Discussed with primary care physician * Continue to hold Solu-Medrol and opioids * Fall precautions * Physical therapy evaluate and treat * Continue blood pressure control and losartan and Norvasc * DVT and GI prophylaxis * Discussed case in detail with the patient and family * Continue telemetry and also IV fluids at this time patient tolerated some by mouth * Incentive spirometer * Placement in am ( History Interval history: Follow-up encephalopathy, pneumonia, shortness of breath Patient seen and examined this morning in no acute distress, mentation improved this morning. Awaiting placement Denies any chest pain, nausea, vomiting, diarrhea No fever noted blood pressure controlled No adverse events reported to me by nursing staff Hospitalist Physical - Physical exam Narrative exam: VITAL SIGNS: Reviewed. GENERAL: The patient appeared well nourished and normally developed. Vital signs as documented. HEAD: No signs of head trauma. EYES: Pupils are equal. Extraocular motions intact. EARS: Hearing grossly intact. MOUTH: Oropharynx is normal. NECK: No adenopathy, no JVD. CHEST: Chest with crackles breath sounds bilaterally. No wheezes CARDIAC: Regular rate and rhythm. S1 and S2, without murmurs, gallops, or rubs. VASCULAR: Trace edema. Peripheral pulses normal and equal in all extremities. ABDOMEN: Soft, without detectable tenderness. No sign of distention. No rebound or guarding, and no masses palpated. Bowel Sounds normal. MUSCULOSKELETAL: Good range of motion of all major joints. Extremities without clubbing, cyanosis. Trace edema. NEUROLOGIC EXAM: Alert and oriented x 3. Intermittent delirium No focal sensory or strength deficits. Speech normal. Follows commands. PSYCHIATRIC: Mood normal. SKIN: Age appropriate wrinkles some blemishes. Focused exam noted, good capillary refill less than 2 seconds - Constitutional Vitals: Temp Pulse Resp BP Pulse Ox 97.9 F 84 18 129/96 96 08/14/16 01:33 08/14/16 02:07 08/14/16 02:07 08/14/16 01:33 08/14/16 01:33 General appearance: Present: no acute distress, well-nourished Results - Labs CBC & Chem 7: 08/11/16 02:19 08/12/16 04:55 Labs: Laboratory Last Values WBC 4.8 K/mm3 (4.5-11.0) 08/11/16 02:19 RBC 4.37 M/mm3 (3.65-5.03) 08/11/16 02:19 Hgb 13.4 gm/dl (11.8-15.2) 08/11/16 02:19 Hct 40.1 % (35.5-45.6) 08/11/16 02:19 MCV 92 fl (84-94) 08/11/16 02:19 MCH 31 pg (28-32) 08/11/16 02:19 MCHC 33 % (32-34) 08/11/16 02:19 RDW 15.0 % (13.2-15.2) 08/11/16 02:19 Plt Count 180 K/mm3 (140-440) 08/11/16 02:19 Lymph % (Auto) 6.7 % (13.4-35.0) L 08/11/16 02:19 [place] % (Auto) 4.8 % (0.0-7.3) 08/11/16 02:19 Eos % (Auto) 0.0 % (0.0-4.3) 08/11/16 02:19 Baso % (Auto) 0.3 % (0.0-1.8) 08/11/16 02:19 Lymph # 0.3 K/mm3 (1.2-5.4) L 08/11/16 02:19 [place] # 0.2 K/mm3 (0.0-0.8) 08/11/16 02:19 Eos # 0.0 K/mm3 (0.0-0.4) 08/11/16 02:19 Baso # 0.0 K/mm3 (0.0-0.1) 08/11/16 02:19 Add Manual Diff Complete 08/10/16 15:28 Total Counted 100 08/10/16 15:28 Seg Neutrophils % 88.2 % (40.0-70.0) H 08/11/16 02:19 Seg Neuts % (Manual) 67.0 % (40.0-70.0) 08/10/16 15:28 Band Neutrophils % 0 % 08/10/16 15:28 Lymphocytes % (Manual) 7.0 % (13.4-35.0) L 08/10/16 15:28 Reactive Lymphs % (Man) 0 % 08/10/16 15:28 Monocytes % (Manual) 26.0 % (0.0-7.3) H 08/10/16 15:28 Eosinophils % (Manual) 0 % (0.0-4.3) 08/10/16 15:28 Basophils % (Manual) 0 % (0.0-1.8) 08/10/16 15:28 Metamyelocytes % 0 % 08/10/16 15:28 Myelocytes % 0 % 08/10/16 15:28 Promyelocytes % 0 % 08/10/16 15:28 Blast Cells % 0 % 08/10/16 15:28 Nucleated RBC % Not Reportable 08/10/16 15:28 Seg Neutrophils # 4.3 K/mm3 (1.8-7.7) 08/11/16 02:19 Seg Neutrophils # Man 4.4 K/mm3 (1.8-7.7) 08/10/16 15:28 Band Neutrophils # 0.0 K/mm3 08/10/16 15:28 Lymphocytes # (Manual) 0.5 K/mm3 (1.2-5.4) L 08/10/16 15:28 Abs React Lymphs (Man) 0.0 K/mm3 08/10/16 15:28 Monocytes # (Manual) 1.7 K/mm3 (0.0-0.8) H 08/10/16 15:28 Eosinophils # (Manual) 0.0 K/mm3 (0.0-0.4) 08/10/16 15:28 Basophils # (Manual) 0.0 K/mm3 (0.0-0.1) 08/10/16 15:28 Metamyelocytes # 0.0 K/mm3 08/10/16 15:28 Myelocytes # 0.0 K/mm3 08/10/16 15:28 Promyelocytes # 0.0 K/mm3 08/10/16 15:28 Blast Cells # 0.0 K/mm3 08/10/16 15:28 WBC Morphology Not Reportable 08/10/16 15:28 Hypersegmented Neuts Not Reportable 08/10/16 15:28 Hyposegmented Neuts Not Reportable 08/10/16 15:28 Hypogranular Neuts Not Reportable 08/10/16 15:28 Smudge Cells Not Reportable 08/10/16 15:28 Toxic Granulation Not Reportable 08/10/16 15:28 Toxic Vacuolation Not Reportable 08/10/16 15:28 Dohle Bodies Not Reportable 08/10/16 15:28 Pelger-Huet Anomaly Not Reportable 08/10/16 15:28 Mónica Rods Not Reportable 08/10/16 15:28 Platelet Estimate Consistent w auto 08/10/16 15:28 Clumped Platelets Not Reportable 08/10/16 15:28 Plt Clumps, EDTA Not Reportable 08/10/16 15:28 Large Platelets Not Reportable 08/10/16 15:28 Giant Platelets Not Reportable 08/10/16 15:28 Platelet Satelliting Not Reportable 08/10/16 15:28 Plt Morphology Comment Not Reportable 08/10/16 15:28 RBC Morphology Normal 08/10/16 15:28 Dimorphic RBCs Not Reportable 08/10/16 15:28 Polychromasia Not Reportable 08/10/16 15:28 Hypochromasia Not Reportable 08/10/16 15:28 Poikilocytosis Not Reportable 08/10/16 15:28 Anisocytosis Not Reportable 08/10/16 15:28 Microcytosis Not Reportable 08/10/16 15:28 Macrocytosis Not Reportable 08/10/16 15:28 Spherocytes Not Reportable 08/10/16 15:28 Pappenheimer Bodies Not Reportable 08/10/16 15:28 Sickle Cells Not Reportable 08/10/16 15:28 Target Cells Not Reportable 08/10/16 15:28 Tear Drop Cells Not Reportable 08/10/16 15:28 Ovalocytes Not Reportable 08/10/16 15:28 Helmet Cells Not Reportable 08/10/16 15:28 [place] Bodies Not Reportable 08/10/16 15:28 [place] Rings Not Reportable 08/10/16 15:28 [place] Cells Not Reportable 08/10/16 15:28 Bite Cells Not Reportable 08/10/16 15:28 Crenated Cell Not Reportable 08/10/16 15:28 Elliptocytes Not Reportable 08/10/16 15:28 Acanthocytes (Spur) Not Reportable 08/10/16 15:28 Rouleaux Not Reportable 08/10/16 15:28 Hemoglobin C Crystals Not Reportable 08/10/16 15:28 Schistocytes Not Reportable 08/10/16 15:28 Malaria parasites Not Reportable 08/10/16 15:28 Fabricio Bodies Not Reportable 08/10/16 15:28 Hem Pathologist Commnt No 08/10/16 15:28 PT 15.1 Sec. (12.2-14.9) H 08/10/16 15:28 INR 1.20 (0.87-1.13) H 08/10/16 15:28 APTT 38.0 Sec. (24.2-36.6) H 08/10/16 15:28 POC ABG pH 7.394 (7.35-7.45) 08/10/16 16:12 POC ABG pCO2 31.9 (35-45) L 08/10/16 16:12 POC ABG pO2 57 (80-105) L 08/10/16 16:12 POC ABG HCO3 19.5 08/10/16 16:12 POC ABG Total CO2 20 08/10/16 16:12 POC ABG O2 Sat 90 08/10/16 16:12 POC ABG Base Excess -5 08/10/16 16:12 FiO2 21 % 08/10/16 16:12 Sodium 137 mmol/L (137-145) 08/12/16 04:55 Potassium 3.6 mmol/L (3.6-5.0) 08/12/16 04:55 Chloride 98.9 mmol/L (98-107) 08/12/16 04:55 Carbon Dioxide 23 mmol/L (22-30) 08/12/16 04:55 Anion Gap 19 mmol/L 08/12/16 04:55 BUN 15 mg/dL (9-20) 08/12/16 04:55 Creatinine 0.6 mg/dL (0.8-1.5) L 08/12/16 04:55 Estimated GFR > 60 ml/min 08/12/16 04:55 BUN/Creatinine Ratio 25.00 % 08/12/16 04:55 Glucose 136 mg/dL (75-100) H 08/12/16 04:55 POC Glucose 134 (70-105) H 08/11/16 21:52 Lactic Acid 1.3 mmol/L (0.7-2.0) 08/10/16 18:12 Calcium 8.2 mg/dL (8.4-10.2) L 08/12/16 04:55 Total Bilirubin 0.2 mg/dL (0.1-1.2) 08/11/16 02:19 Direct Bilirubin < 0.2 mg/dL (0-0.2) 08/10/16 15:28 Indirect Bilirubin 0.3 mg/dL 08/10/16 15:28 AST 26 units/L (5-40) 08/11/16 02:19 ALT 9 units/L (7-56) 08/11/16 02:19 Alkaline Phosphatase 47 units/L (35-129) 08/11/16 02:19 Troponin T 0.014 ng/mL (0.00-0.029) 08/11/16 02:19 NT-Pro-B Natriuret Pep 3115 pg/mL (0-900) H 08/10/16 15:28 Total Protein 5.5 g/dL (6.3-8.2) L 08/11/16 02:19 Albumin 3.1 g/dL (3.9-5) L 08/11/16 02:19 Albumin/Globulin Ratio 1.3 % 08/11/16 02:19 Urine Color Yellow (Yellow) 08/10/16 Unknown Urine Turbidity Clear (Clear) 08/10/16 Unknown Urine pH 6.0 (5.0-7.0) 08/10/16 Unknown Ur Specific [place] 1.013 (1.003-1.030) 08/10/16 Unknown Urine Protein 100 mg/dl mg/dL (Negative) 08/10/16 Unknown Urine Glucose (UA) Neg mg/dL (Negative) 08/10/16 Unknown Urine Ketones Tr mg/dL (Negative) 08/10/16 Unknown Urine Blood Lg (Negative) 08/10/16 Unknown Urine Nitrite Neg (Negative) 08/10/16 Unknown Urine Bilirubin Neg (Negative) 08/10/16 Unknown Urine Urobilinogen < 2.0 mg/dL (<2.0) 08/10/16 Unknown Ur Leukocyte Esterase Neg (Negative) 08/10/16 Unknown Urine WBC (Auto) 1.0 /HPF (0.0-6.0) 08/10/16 Unknown Urine RBC (Auto) 24.0 /HPF (0.0-6.0) 08/10/16 Unknown Urine Mucus Few /HPF 08/10/16 Unknown
--- NOTE | 2016-08-14 08:35 | Discharge Summary ---
Providers - Providers Date of Admission: 08/10/16 20:50 Date of discharge: 08/15/16 Attending physician: REGINA ESCOBAR MD 08/11/16 00:36 Physical Therapy Evaluation and Treat [CONS] Routine Comment: Reason For Exam: debility 08/13/16 09:06 Consult to Mental Health [CONS] Routine Reason For Exam: DELIRIUM VS PYSCHOSIS Place consult to:: MENTAL Notified:: Anne Marie RAMÍREZ Phone number called:: [phone] Was contact made?: Yes If yes, spoke with:: Jeri-Mental Health Time called:: 09:21 08/13/16 14:11 Consult to Case Management [CONS] Routine Services Needed at Discharge: Other Notified:: Leslie-Case Management Was contact made?: Yes If yes, spoke with:: Dr. Escobar spoke with Leslie Additional Physician Instructions: snf Primary care physician: BOX TOE BUFFER Hospitalization Reason for admission: febrile illness Condition: Stable Hospital course: Patient is a 81 y/o WM with hx of HTN, Dementia, COPD brought in by family for altered sensorium and increasing SOB, and nonproductive cough. Also unable to walk since AM. On admission the patient was noted to have a fever off 101. Chest x-ray was unremarkable. The patient had bronchitis and this was possibly infected bronchitis crescent sepsis symptomatology. Patient was treated with antibiotics with good improvement. He did have intermittent confusion mainly at night time which is corresponding with sundowning and the patient with baseline dementia. This resolves in the morning and especially when families around. An ABG did reveal some hypoxia. Also corresponded with a COPD exacerbation caused by bronchitis. He is currently stable at this point to be discharged. He will need assisted facility placement for rehabilitation. He is to have oxygen involve due to hypoxia on ABG. His saturation was 94%. Discharge diagnosis * Sepsis possible secondary to bronchitis * [place] bronchitis * Baseline dementia * Acute metabolic encephalopathy * COPD with acute exacerbation * Hyponatremia rule out SIADH * Hypertension * Acute respiratory failure with hypoxia * Debility with gait abnormality Disposition: DC/TX SNF [facility] Time spent for discharge: 35 mins Core Measure Documentation - Palliative Care Palliative Care/ Comfort Measures: Not Applicable - Core Measures Any of the following diagnoses?: none - VTE Discharge Requirements Deep Vein Thrombosis/Pulmonary Embolism Present on Admission: No Exam - Physical Exam Narrative exam: VITAL SIGNS: Reviewed. GENERAL: The patient appeared well nourished and normally developed. Vital signs as documented. HEAD: No signs of head trauma. EYES: Pupils are equal. Extraocular motions intact. EARS: Hearing grossly intact. MOUTH: Oropharynx is normal. NECK: No adenopathy, no JVD. CHEST: Chest with crackles breath sounds bilaterally. No wheezes CARDIAC: Regular rate and rhythm. S1 and S2, without murmurs, gallops, or rubs. VASCULAR: Trace edema. Peripheral pulses normal and equal in all extremities. ABDOMEN: Soft, without detectable tenderness. No sign of distention. No rebound or guarding, and no masses palpated. Bowel Sounds normal. MUSCULOSKELETAL: Good range of motion of all major joints. Extremities without clubbing, cyanosis. Trace edema. NEUROLOGIC EXAM: Alert and oriented x 3. Intermittent delirium, No focal sensory or strength deficits. Speech normal. Follows commands. PSYCHIATRIC: Mood normal. SKIN: Age appropriate wrinkles some blemishes. Focused exam noted, good capillary refill less than 2 seconds - Constitutional Vitals: Temp Pulse Resp BP Pulse Ox 97.9 F 84 18 129/96 96 08/14/16 01:33 08/14/16 02:07 08/14/16 02:07 08/14/16 01:33 08/14/16 01:33 Plan Activity: advance as tolerated, fall precautions Diet: low fat Special Instructions: record daily BP diary, physical therapy, occupational therapy Follow up with: PRIMARY CARE,MD [Primary Care Provider] - 3-5 Days Prescriptions: Azithromycin [Zithromax TAB] 500 mg PO QHS #3 tablet Ipratropium/Albuterol Sulfate [Duoneb 0.5 mg-3 mg/3 ml Soln] 1 ampul IH Q6HRT # 30 ampul.neb
[2016-08-14] MEDS: HABITROL TD SCH (10:35)
[2016-08-14] MEDS: HALFPRIN EC PO SCH (10:35)
[2016-08-14] MEDS: INDERAL PO SCH (10:36)
[2016-08-14] MEDS: NORVASC PO SCH (10:37)
[2016-08-14] MEDS: COZAAR PO SCH (10:40)
[2016-08-14 16:56] LABS: ISTAT Base Excess 3; ISTAT HCO3 26.7; ISTAT PCO2 34.3 (35-45); ISTAT PH 7.499 (7.35-7.45); ISTAT PO2 62 (80-105); ISTAT SO2 94; ISTAT TCO2 28
[2016-08-14] MEDS: ZITHROMAX PO SCH (21:42)
[2016-08-14] MEDS: ROCEPHIN/NS 2 GM/100 ML 2 GM/100 ML BAG IV SCH (21:44)
[2016-08-15] MEDS: DUONEB 0.5 MG-3 MG/3 ML SOLN IH SCH ×4 (01:39→19:18)
[2016-08-15] MEDS: NORVASC PO SCH (09:43)
[2016-08-15] MEDS: COZAAR PO SCH (09:43)
[2016-08-15] MEDS: HALFPRIN EC PO SCH (09:43)
[2016-08-15] MEDS: INDERAL PO SCH (09:44)
[2016-08-15] MEDS: HABITROL TD SCH (09:44)
--- NOTE | 2016-08-15 18:01 | Progress Note ---
Assessment and Plan Assessment and plan: Patient is a 81 y/o WM with hx of HTN, Dementia, COPD brought in by family for altered sensorium and increasing SOB, and nonproductive cough. Also unable to walk since AM. Fever of 101 noted on hospital admission.Continues to smoke pack a day.Cough productive of mucoid sputum.No trauma. * Sepsis possible secondary to bronchitis * Baseline dementia although with altered sensorium likely secondary to sepsis- the family patient normally sharp and not unruly as he has been in the past day * Acute metabolic encephalopathy * COPD with acute exacerbation * Hyponatremia rule out SIADH * Hypertension * Acute respiratory failure with hypoxia * Debility with gait abnormality Plan * Clinically improving. Continue antibiotics, steroids, DuoNeb's * Anticipate discharge Monday to assisted facility. * Repeat chest x-ray in 4-6 weeks shows patient * Follow culture no growth until now. * Reviewed sodium changes only improved by 12 mEq in the first 24 hours. * Discussed with primary care physician * Continue to hold Solu-Medrol and opioids * Fall precautions * Physical therapy evaluate and treat * Continue blood pressure control and losartan and Norvasc * DVT and GI prophylaxis * Discussed case in detail with the patient and family * Continue telemetry and also IV fluids at this time patient tolerated some by mouth * Incentive spirometer * Placement in am ( History Interval history: Follow-up encephalopathy, pneumonia, shortness of breath Patient seen and examined this morning in no acute distress, mentation improved this morning. Awaiting placement Denies any chest pain, nausea, vomiting, diarrhea No fever noted blood pressure controlled No adverse events reported to me by nursing staff Hospitalist Physical - Physical exam Narrative exam: VITAL SIGNS: Reviewed. GENERAL: The patient appeared well nourished and normally developed. Vital signs as documented. HEAD: No signs of head trauma. EYES: Pupils are equal. Extraocular motions intact. EARS: Hearing grossly intact. MOUTH: Oropharynx is normal. NECK: No adenopathy, no JVD. CHEST: Chest with crackles breath sounds bilaterally. No wheezes CARDIAC: Regular rate and rhythm. S1 and S2, without murmurs, gallops, or rubs. VASCULAR: Trace edema. Peripheral pulses normal and equal in all extremities. ABDOMEN: Soft, without detectable tenderness. No sign of distention. No rebound or guarding, and no masses palpated. Bowel Sounds normal. MUSCULOSKELETAL: Good range of motion of all major joints. Extremities without clubbing, cyanosis. Trace edema. NEUROLOGIC EXAM: Alert and oriented x 3. Intermittent delirium mainly at night , No focal sensory or strength deficits. Speech normal. Follows commands. PSYCHIATRIC: Mood normal. SKIN: Age appropriate wrinkles some blemishes. Focused exam noted, good capillary refill less than 2 seconds - Constitutional Vitals: Temp Pulse Resp BP Pulse Ox 97.0 F L 83 16 130/95 98 08/15/16 16:00 08/15/16 16:00 08/15/16 16:00 08/15/16 16:00 08/15/16 16:00 General appearance: Present: no acute distress, well-nourished Results - Labs CBC & Chem 7: 08/11/16 02:19 08/12/16 04:55 Labs: Laboratory Last Values WBC 4.8 K/mm3 (4.5-11.0) 08/11/16 02:19 RBC 4.37 M/mm3 (3.65-5.03) 08/11/16 02:19 Hgb 13.4 gm/dl (11.8-15.2) 08/11/16 02:19 Hct 40.1 % (35.5-45.6) 08/11/16 02:19 MCV 92 fl (84-94) 08/11/16 02:19 MCH 31 pg (28-32) 08/11/16 02:19 MCHC 33 % (32-34) 08/11/16 02:19 RDW 15.0 % (13.2-15.2) 08/11/16 02:19 Plt Count 180 K/mm3 (140-440) 08/11/16 02:19 Lymph % (Auto) 6.7 % (13.4-35.0) L 08/11/16 02:19 [place] % (Auto) 4.8 % (0.0-7.3) 08/11/16 02:19 Eos % (Auto) 0.0 % (0.0-4.3) 08/11/16 02:19 Baso % (Auto) 0.3 % (0.0-1.8) 08/11/16 02:19 Lymph # 0.3 K/mm3 (1.2-5.4) L 08/11/16 02:19 [place] # 0.2 K/mm3 (0.0-0.8) 08/11/16 02:19 Eos # 0.0 K/mm3 (0.0-0.4) 08/11/16 02:19 Baso # 0.0 K/mm3 (0.0-0.1) 08/11/16 02:19 Add Manual Diff Complete 08/10/16 15:28 Total Counted 100 08/10/16 15:28 Seg Neutrophils % 88.2 % (40.0-70.0) H 08/11/16 02:19 Seg Neuts % (Manual) 67.0 % (40.0-70.0) 08/10/16 15:28 Band Neutrophils % 0 % 08/10/16 15:28 Lymphocytes % (Manual) 7.0 % (13.4-35.0) L 08/10/16 15:28 Reactive Lymphs % (Man) 0 % 08/10/16 15:28 Monocytes % (Manual) 26.0 % (0.0-7.3) H 08/10/16 15:28 Eosinophils % (Manual) 0 % (0.0-4.3) 08/10/16 15:28 Basophils % (Manual) 0 % (0.0-1.8) 08/10/16 15:28 Metamyelocytes % 0 % 08/10/16 15:28 Myelocytes % 0 % 08/10/16 15:28 Promyelocytes % 0 % 08/10/16 15:28 Blast Cells % 0 % 08/10/16 15:28 Nucleated RBC % Not Reportable 08/10/16 15:28 Seg Neutrophils # 4.3 K/mm3 (1.8-7.7) 08/11/16 02:19 Seg Neutrophils # Man 4.4 K/mm3 (1.8-7.7) 08/10/16 15:28 Band Neutrophils # 0.0 K/mm3 08/10/16 15:28 Lymphocytes # (Manual) 0.5 K/mm3 (1.2-5.4) L 08/10/16 15:28 Abs React Lymphs (Man) 0.0 K/mm3 08/10/16 15:28 Monocytes # (Manual) 1.7 K/mm3 (0.0-0.8) H 08/10/16 15:28 Eosinophils # (Manual) 0.0 K/mm3 (0.0-0.4) 08/10/16 15:28 Basophils # (Manual) 0.0 K/mm3 (0.0-0.1) 08/10/16 15:28 Metamyelocytes # 0.0 K/mm3 08/10/16 15:28 Myelocytes # 0.0 K/mm3 08/10/16 15:28 Promyelocytes # 0.0 K/mm3 08/10/16 15:28 Blast Cells # 0.0 K/mm3 08/10/16 15:28 WBC Morphology Not Reportable 08/10/16 15:28 Hypersegmented Neuts Not Reportable 08/10/16 15:28 Hyposegmented Neuts Not Reportable 08/10/16 15:28 Hypogranular Neuts Not Reportable 08/10/16 15:28 Smudge Cells Not Reportable 08/10/16 15:28 Toxic Granulation Not Reportable 08/10/16 15:28 Toxic Vacuolation Not Reportable 08/10/16 15:28 Dohle Bodies Not Reportable 08/10/16 15:28 Pelger-Huet Anomaly Not Reportable 08/10/16 15:28 Mónica Rods Not Reportable 08/10/16 15:28 Platelet Estimate Consistent w auto 08/10/16 15:28 Clumped Platelets Not Reportable 08/10/16 15:28 Plt Clumps, EDTA Not Reportable 08/10/16 15:28 Large Platelets Not Reportable 08/10/16 15:28 Giant Platelets Not Reportable 08/10/16 15:28 Platelet Satelliting Not Reportable 08/10/16 15:28 Plt Morphology Comment Not Reportable 08/10/16 15:28 RBC Morphology Normal 08/10/16 15:28 Dimorphic RBCs Not Reportable 08/10/16 15:28 Polychromasia Not Reportable 08/10/16 15:28 Hypochromasia Not Reportable 08/10/16 15:28 Poikilocytosis Not Reportable 08/10/16 15:28 Anisocytosis Not Reportable 08/10/16 15:28 Microcytosis Not Reportable 08/10/16 15:28 Macrocytosis Not Reportable 08/10/16 15:28 Spherocytes Not Reportable 08/10/16 15:28 Pappenheimer Bodies Not Reportable 08/10/16 15:28 Sickle Cells Not Reportable 08/10/16 15:28 Target Cells Not Reportable 08/10/16 15:28 Tear Drop Cells Not Reportable 08/10/16 15:28 Ovalocytes Not Reportable 08/10/16 15:28 Helmet Cells Not Reportable 08/10/16 15:28 Wilson-[place] Bodies Not Reportable 08/10/16 15:28 [place] Rings Not Reportable 08/10/16 15:28 Brea Cells Not Reportable 08/10/16 15:28 Bite Cells Not Reportable 08/10/16 15:28 Crenated Cell Not Reportable 08/10/16 15:28 Elliptocytes Not Reportable 08/10/16 15:28 Acanthocytes (Spur) Not Reportable 08/10/16 15:28 Rouleaux Not Reportable 08/10/16 15:28 Hemoglobin C Crystals Not Reportable 08/10/16 15:28 Schistocytes Not Reportable 08/10/16 15:28 Malaria parasites Not Reportable 08/10/16 15:28 Fabricio Bodies Not Reportable 08/10/16 15:28 Hem Pathologist Commnt No 08/10/16 15:28 PT 15.1 Sec. (12.2-14.9) H 08/10/16 15:28 INR 1.20 (0.87-1.13) H 08/10/16 15:28 APTT 38.0 Sec. (24.2-36.6) H 08/10/16 15:28 POC ABG pH 7.499 (7.35-7.45) H 08/14/16 16:41 POC ABG pCO2 34.3 (35-45) L 08/14/16 16:41 POC ABG pO2 62 (80-105) L 08/14/16 16:41 POC ABG HCO3 26.7 08/14/16 16:41 POC ABG Total CO2 28 08/14/16 16:41 POC ABG O2 Sat 94 08/14/16 16:41 POC ABG Base Excess 3 08/14/16 16:41 FiO2 3.5 % 08/14/16 16:41 Sodium 137 mmol/L (137-145) 08/12/16 04:55 Potassium 3.6 mmol/L (3.6-5.0) 08/12/16 04:55 Chloride 98.9 mmol/L (98-107) 08/12/16 04:55 Carbon Dioxide 23 mmol/L (22-30) 08/12/16 04:55 Anion Gap 19 mmol/L 08/12/16 04:55 BUN 15 mg/dL (9-20) 08/12/16 04:55 Creatinine 0.6 mg/dL (0.8-1.5) L 08/12/16 04:55 Estimated GFR > 60 ml/min 08/12/16 04:55 BUN/Creatinine Ratio 25.00 % 08/12/16 04:55 Glucose 136 mg/dL (75-100) H 08/12/16 04:55 POC Glucose 134 (70-105) H 08/11/16 21:52 Lactic Acid 1.3 mmol/L (0.7-2.0) 08/10/16 18:12 Calcium 8.2 mg/dL (8.4-10.2) L 08/12/16 04:55 Total Bilirubin 0.2 mg/dL (0.1-1.2) 08/11/16 02:19 Direct Bilirubin < 0.2 mg/dL (0-0.2) 08/10/16 15:28 Indirect Bilirubin 0.3 mg/dL 08/10/16 15:28 AST 26 units/L (5-40) 08/11/16 02:19 ALT 9 units/L (7-56) 08/11/16 02:19 Alkaline Phosphatase 47 units/L (35-129) 08/11/16 02:19 Troponin T 0.014 ng/mL (0.00-0.029) 08/11/16 02:19 NT-Pro-B Natriuret Pep 3115 pg/mL (0-900) H 08/10/16 15:28 Total Protein 5.5 g/dL (6.3-8.2) L 08/11/16 02:19 Albumin 3.1 g/dL (3.9-5) L 08/11/16 02:19 Albumin/Globulin Ratio 1.3 % 08/11/16 02:19 Urine Color Yellow (Yellow) 08/10/16 Unknown Urine Turbidity Clear (Clear) 08/10/16 Unknown Urine pH 6.0 (5.0-7.0) 08/10/16 Unknown Ur Specific [place] 1.013 (1.003-1.030) 08/10/16 Unknown Urine Protein 100 mg/dl mg/dL (Negative) 08/10/16 Unknown Urine Glucose (UA) Neg mg/dL (Negative) 08/10/16 Unknown Urine Ketones Tr mg/dL (Negative) 08/10/16 Unknown Urine Blood Lg (Negative) 08/10/16 Unknown Urine Nitrite Neg (Negative) 08/10/16 Unknown Urine Bilirubin Neg (Negative) 08/10/16 Unknown Urine Urobilinogen < 2.0 mg/dL (<2.0) 08/10/16 Unknown Ur Leukocyte Esterase Neg (Negative) 08/10/16 Unknown Urine WBC (Auto) 1.0 /HPF (0.0-6.0) 08/10/16 Unknown Urine RBC (Auto) 24.0 /HPF (0.0-6.0) 08/10/16 Unknown Urine Mucus Few /HPF 08/10/16 Unknown
[2016-08-15] MEDS: ZITHROMAX PO SCH (22:03)
[2016-08-15] MEDS: ROCEPHIN/NS 2 GM/100 ML 2 GM/100 ML BAG IV SCH (22:03)
[2016-08-16] MEDS: DUONEB 0.5 MG-3 MG/3 ML SOLN IH SCH ×3 (02:29→13:46)
--- NOTE | 2016-08-16 08:27 | XRay Report ---
AP CHEST :08/15/16 CLINICAL: Shortness of breath. COMPARISON:08/10/16 FINDINGS: Normal heart and pulmonary vasculature. The lungs are clear. The bones and soft tissues are normal. IMPRESSION: No acute cardiopulmonary process.
[2016-08-16] MEDS: HALFPRIN EC PO SCH (10:17)
[2016-08-16] MEDS: HABITROL TD SCH (10:18)
[2016-08-16] MEDS: NORVASC PO SCH (10:19)
[2016-08-16] MEDS: INDERAL PO SCH (10:19)
[2016-08-16 14:17] VITALS: BP 107/77
== END 2016-08-16 17:07 | DRG 871 ==
LOC: ED 14:17 → 4A 20:50
PROVIDERS: ADMIT Internal Medicine; ATTEND Internal Medicine
PROC: 4A033R1 Measurement of Arterial Saturation, Peripheral, Percutaneous Approach (ICD-10-PCS; principal; 2016-08-10)
DX: A41.9 Sepsis, unspecified organism (principal); G93.41 Metabolic encephalopathy; J96.01 Acute respiratory failure with hypoxia; J44.1 Chronic obstructive pulmonary disease with (acute) exacerbation; E22.2 Syndrome of inappropriate secretion of antidiuretic hormone; I10 Essential (primary) hypertension; R53.81 Other malaise; F03.90 Unspecified dementia, unspecified severity, without behavioral disturbance, psychotic disturbance, mood disturbance, and anxiety; K42.9 Umbilical hernia without obstruction or gangrene; F17.210 Nicotine dependence, cigarettes, uncomplicated; R26.89 Other abnormalities of gait and mobility; Z79.899 Other long term (current) drug therapy; Z90.5 Acquired absence of kidney; Z85.528 Personal history of other malignant neoplasm of kidney
CPT/HCPCS: 36415; 36600; 70450; 71010; 72170; 80048; 80053; 80074; 81001; 82140; 82803; 82962; 83880; 84295; 84484; 85007; 85025; 85610; 85730; 87040; 87086; 93005; 93010; 94640; 94760; 96361; 96365; 96367; 96375; G8978-GP; G8979-GP; J0456; J0696; J2930; J3475; J7030; J7050

== ENCOUNTER 2016-12-16 20:18 | Emergency (ER) | payer MEDICARE ==
[2016-12-16] MEDS ORDERED: NACL 0.9% 1000 ML 1,000 ML ONE (20:28)
[2016-12-16] MEDS ORDERED: VASELINE LIP THERAPY TP PRN (20:33)
[2016-12-16] MEDS ORDERED: ARTIFICIAL TEARS OPHTH OINT OU PRN (20:33)
[2016-12-16 20:53] LABS: Basophils % (Auto) 2.2 % (0.0-1.8); Eosinophils % (Auto) 2.7 % (0.0-4.3); Hematocrit 38.9 % (35.5-45.6); Hemoglobin 12.8 gm/dl (11.8-15.2); Mean Corpuscular HGB Conc 33 % (32-34); Mean Corpuscular Hemoglobin 30 pg (28-32); Mean Corpuscular Volume 92 fl (84-94); Platelet Count 228 K/mm3 (140-440); Red Blood Count 4.23 M/mm3 (3.65-5.03); Red Cell Distribution Width 16.7 % (13.2-15.2); White Blood Count 10.3 K/mm3 (4.5-11.0)
[2016-12-16 21:02] LABS: INR 1.27 (0.87-1.13)
[2016-12-16 21:03] LABS: Partial Thromboplastin Time 38.5 Sec. (24.2-36.6)
[2016-12-16 21:13] LABS: Alanine Aminotransferase 5 units/L (7-56); Albumin 3.6 g/dL (3.9-5); Albumin/Globulin Ratio 1.6 %; Alkaline Phosphatase 63 units/L (35-129); Anion Gap 21 mmol/L; BUN/Creatinine Ratio 13.75; Blood Urea Nitrogen 11 mg/dL (9-20); Carbon Dioxide 21 mmol/L (22-30); Chloride 99.7 mmol/L (98-107); Glucose 86 mg/dL (75-100); Potassium 4.6 mmol/L (3.6-5.0); Sodium 137 mmol/L (137-145); Total Protein 5.8 g/dL (6.3-8.2)
--- NOTE | 2016-12-16 21:28 | Emergency Department Report ---
HPI - General Chief Complaint: Dyspnea/Respdistress Time Seen by Provider: 12/16/16 20:33 - HPI HPI: This is a 81-year-old male who presents to the emergency department by EMS from home with complaint of respiratory distress and altered mental status. The patient was sitting at home with his at dinner when he clutched his chest and said "this is a big one." After that he lost consciousness and started having some convulsions and/or seizure-like activity. EMS was called and found the patient unresponsive with some abnormal respirations. He was given bag valve ventilation, IV placement, and was brought in for further evaluation. He has a history of COPD and hypertension. His primary care physician is Dr. Blanchard. Patient is currently ill appearing and unresponsive and therefore a poor historian. ED Past Medical Hx - Past Medical History Hx Hypertension: Yes Hx Arthritis: Yes Hx Asthma: Yes Hx COPD: Yes Hx Dementia: Yes (mild) Additional medical history: abdominal aneurysm. umbilical hernia - Surgical History Additional Surgical History: Cervical spine surgery. Previous nephrectomy for kidney cancer - Social History Smoking Status: Never Smoker Substance Use Type: None - Medications Home Medications: Home Medications Medication Instructions Recorded Confirmed Last Taken Type Aspirin EC [Aspirin Enteric Coated 81 mg PO QDAY 08/10/16 08/10/16 08/09/16 History TAB] Losartan [Cozaar] 100 mg PO QDAY 08/10/16 08/10/16 08/09/16 History Propranolol [Inderal] 80 mg PO QDAY 08/10/16 08/10/16 08/09/16 History amLODIPine [Norvasc] 5 mg PO DAILY 08/10/16 08/10/16 08/09/16 History Ipratropium/Albuterol Sulfate 1 ampul IH Q6HRT #30 ampul.neb 08/14/16 Unknown Rx [Duoneb 0.5 mg-3 mg/3 ml Soln] Azithromycin [Zithromax TAB] 500 mg PO QHS #3 tablet 08/15/16 Unknown Rx ED Review of Systems ROS: Stated complaint: AMS Other details as noted in HPI Comment: Unobtainable due to pts medical conditions Physical Exam - Physical Exam Vital Signs: Vital Signs 12/16/16 12/16/16 20:45 21:17 Temperature 97.4 F L Pulse Rate 98 H 80 Blood Pressure 140/89 Blood Pressure 153/98 [Left] O2 Sat by Pulse 100 100 Oximetry Physical Exam: GENERAL: Patient is ill-appearing and responsive. HEENT: Normocephalic. Atraumatic. Extraocular motions are intact. Patient has moist mucous membranes. Pupils are constricted and sluggish. NECK: Supple. Trachea is midline. CHEST/LUNGS: Clear to auscultation. But there is bradycardia and some snoring respirations. Patient appears in respiratory distress. HEART/CARDIOVASCULAR: Regular. There is no tachycardia. There is no gallop rub or murmur. ABDOMEN: Abdomen is soft, nontender. Patient has normal bowel sounds. There is no abdominal distention. SKIN: Skin is warm and dry. NEURO: Patient is unresponsive to verbal and painful stimuli. He does not follow any commands. MUSCULOSKELETAL: There is no tenderness or deformity. There is no limitation range of motion. There is no evidence of acute injury. +2 over 4 radial pulses bilaterally and femoral pulses that appear equal. ED Course Vital Signs 12/16/16 12/16/16 20:45 21:17 Temperature 97.4 F L Pulse Rate 98 H 80 Blood Pressure 140/89 Blood Pressure 153/98 [Left] O2 Sat by Pulse 100 100 Oximetry - Consultations Consultation #1: Once the patient was discovered to have a type A dissection, I started calling for hospital with cardiothoracic surgery. I contacted [facility] but they said they do not have a cardiothoracic surgeon on-call. [facility] has accepted the patient for transfer to Dr. Agrawal. 12/17/16 02:27 - ABG Interpretation Ph: [phone] PCO2: 35 PO2: 414 Bicarbonate: 23 Interpretation: normal - Central Line Placement Right Femoral Consent Obtained: emergent situation Time Out Performed: Yes Patient Placed on Monitor/Pulse Ox: Yes MD Prep: mask, gown, gloves Central Line Prep: Chlorhexidine scrub Ultrasound Used for Placement: Yes Central Line Lumen Inserted: triple Bloods Obtained for Lab: No Central Line Position: good blood return, all ports aspirated, flus, sutured in place with nyl Dressing Applied: Tegaderm, sterile gauze/tape Patient Tolerated Procedure: well Complications: none - Intubation Time Out Performed: Yes Paralytic: Rocuronium Mg Given: 70 Laryngoscope: Covarrubias Size: 4 ET Tube Size: 7.5 Tube Secured Depth (cm): 24 Tube Secured Location: lips Tube Placement Confirmation: visualized tube passing t, equal breath sounds bilat, no breath sounds over epi Patient Tolerated Procedure: well Intubation Complications: none ED Medical Decision Making - Lab Data Result diagrams: 12/16/16 20:30 12/16/16 20:30 - EKG Data -: EKG Interpreted by Me - EKG Data When compared to previous EKG there are: changes noted (previous EKG did not show atrial fibrillation) Interpretation: other (atrial fibrillation, normal axis, rate of 75 bpm, no ST elevation PA) - Radiology Data Radiology results: report reviewed, image reviewed interpreted by me: Chest x-ray shows appropriate placement of the ET tube. There is no pneumothorax. There is no widened mediastinum. There is no pleural effusions. There is calcification seen at the aortic knob. CT angiography of the chest shows an aneurysm in the ascending aorta measures 5 cm. There is moderate atherosclerosis of the aorta. Calcification pattern of the descending thoracic aorta is irregular suggesting aortic dissection. Contrast timing is not appropriate for full evaluation of the aorta for dissection. The pulmonary arterial emboli. Consulting the pneumonia in the left lower lung. Borderline cardiomegaly with mild pericardial effusion. CT of the head without contrast shows no evidence of acute intercranial process. Mild atrophy. 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 Mild periventricular deep white matter changes. CT enterography of the chest that was repeated for better view of the aorta shows a type A aortic dissection starting in the ascending aorta and extending down the entire length of the aorta to the aortic bifurcation. Dissection does not appear to extend into the common iliac arteries. Ascending aortic aneurysm measures 5.2 cm. An infrarenal abdominal aortic aneurysm measures 2.9 cm. There is significant peripheral atherosclerotic plaque identified throughout the aorta. Atelectasis infiltrate in the left lower lung. Endotracheal tube is just above the onur. Bilateral inguinal hernias are identified. A large hernia on the right contains visited fat and a few loops of nondilated bowel. Previous right nephrectomy. - Medical Decision Making A 81-year-old male presents to the emergency department after clutching his chest and going unconscious. He presented in respiratory distress and was intubated for protection of his airway and to provide oxygenation. Labs were sent and overall are mostly unremarkable and do not show any etiology of his symptoms. His EKG and pulse checks show an irregular rhythm and rate in the patient appears to be in atrial fibrillation which she does not have a previous history of. Negative troponins 2 this far. Patient did have a severely elevated level of his d-dimer. He had a CT of the head done without contrast that does not show any bleed, shift, mass, ischemic changes or any acute process. A CT of the chest angiography was done to rule out pulmonary embolism and view the aorta. There was no pulmonary embolism but there was some concern for dissection but due to the timing of the contrast a were not able to fully evaluate the aorta and requested further imaging. The patient was sent back for another CT angiography of the chest that came back showing a type A dissection. Patient had become hypotensive so he was given a central line placement in the right femoral vein and started on vasopressin. He is getting IV fluid resuscitation and we are now starting a unit of packed red blood cells. Patient has just been accepted for transfer to [facility] by cardiothoracic surgery and transportation is here. Family has been updated along the way for his labs, imaging and plan for transfer and they understand and agree. Patient is in serious condition and guarded. - Differential Diagnosis PA, PE, dissection, CVA Critical Care Time: Yes Critical care time in (mins) excluding proc time.: 50 Critical care attestation.: If time is entered above; I have spent that time in minutes in the direct care of this critically ill patient, excluding procedure time. Good equal care time was spent on this patient is a nasal evaluation, multiple re-evaluations, multiple discussions with family, discussion with radiology, discussion with cardiothoracic surgery at the accepting [facility], ordering and interpretation of labs, ordering and evaluation of imaging and results, titration of pressors, IV fluid and blood resuscitation. This does not include the time spent doing the intubation and central venous catheter procedures. Critical Care Time: 50 minutes ED Disposition Clinical Impression: Type 1 dissection of ascending aorta Respiratory failure Qualifiers: Chronicity: acute Respiratory failure complication: unspecified whether with hypoxia or hypercapnia Qualified Code(s): J96.00 - Acute respiratory failure, unspecified whether with hypoxia or hypercapnia Hypotension Qualifiers: Hypotension type: unspecified hypotension type Qualified Code(s): I95.9 - Hypotension, unspecified Disposition: DC/TX-70 ANOTHER TYPE [facility]THCARE Is pt being admited?: No Condition: Critical Referrals: CHRISTINAEROS MORRIS MD [Primary Care Provider] - 3-5 Days Time of Disposition: 02:40
[2016-12-16 21:30] LABS: Urine Drugs of Abuse Note Disclamer
[2016-12-16 21:39] LABS: Bacteria,Urine 1+ /HPF (Negative); Bilirubin,Urine NEG (Negative); Blood,Urine SM (Negative); Ketones,Urine NEG (Negative); Leukocyte Esterase,Urine NEG (Negative); Mucus,Urine FEW /HPF; Nitrite,Urine NEG (Negative); Urobilinogen,Urine < 2.0 mg/dL (<2.0); WBC,Urine < 1.0 /HPF (0.0-6.0)
[2016-12-16] MEDS ORDERED: NACL ONE ×3 (21:49→23:12)
[2016-12-16 22:30] LABS: ISTAT Base Excess -1; ISTAT HCO3 23.6; ISTAT PCO2 35.4 (35-45); ISTAT PH 7.432 (7.35-7.45); ISTAT PO2 414 (80-105); ISTAT SO2 100; ISTAT TCO2 25
[2016-12-16] MEDS: MIDAZOLAM 100 MG in NACL 0.9% 80 ML IV SCH ×2 (22:50→23:20)
--- NOTE | 2016-12-16 23:22 | Cat Scan Report ---
FINAL REPORT PROCEDURE: CT HEAD/BRAIN WO CON TECHNIQUE: Computerized tomography of the head was performed without contrast material. HISTORY: AMS COMPARISON: No prior studies are available for comparison. FINDINGS: Skull and scalp: Normal. Paranasal sinuses: Moderate opacification of the left maxillary and left sphenoid sinuses.. Ventricles and subarachnoid spaces: Normal. Cerebrum: There is no evidence of an acute intracranial hemorrhage, hematoma or infarction. No midline displacement or mass. Mild atrophy and periventricular deep white matter changes. 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 Cerebellum and brainstem: No evidence of hemorrhage, acute infarction or mass. Vasculature: Normal. Comments: None. IMPRESSION: There is no evidence of an acute intracranial process. Mild atrophy. 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 Mild periventricular deep white matter changes.
[2016-12-17] MEDS ORDERED: NACL 0.9% 1000 ML 1,000 ML ONE (00:14)
[2016-12-17] MEDS ORDERED: NACL 0.9% 1000 ML 1,000 ML IV ONE ×2 (00:47)
--- NOTE | 2016-12-17 00:59 | Cat Scan Report ---
FINAL REPORT PROCEDURE: CT ANGIO CHEST TECHNIQUE: Computerized tomographic angiography of the chest was performed after the IV injection of iodinated nonionic contrast including image processing. The image data was postprocessed using 2-dimensional multiplanar reformatted (MPR) and 3-dimensional (MIP and/or volume rendered) techniques. HISTORY: PE protocol COMPARISON: No prior studies are available for comparison. FINDINGS: Heart and pericardium: Heart size is borderline prominent. Mild pericardial effusion is noted.. Thoracic aorta: Contrast timing is not appropriate for full evaluation of the aorta. There is moderate atherosclerotic change within the aorta. An ascending aortic aneurysm measures 5 centimeters. The calcification pattern of the descending thoracic aorta is irregular and may suggest dissection. Full evaluation for dissection is not accomplished on this study. A repeat study with CTA of the aorta would be appropriate this patient.. Pulmonary vasculature: There is no evidence of pulmonary arterial emboli.. Lymph nodes: There are some lymph nodes in the mediastinum. These measure up to 15 millimeters.. Lungs: There is a consolidating infiltrate in the left lower lung. No pneumothorax or effusion is seen. The endotracheal tube ends approximately 1 centimeter above the onur.. Pleural space: No effusion, thickening, or pneumothorax. Musculoskeletal structures: Moderate degenerative changes of the thoracic spine. No acute osseous abnormality.. Upper abdominal structures: Infrarenal abdominal aortic aneurysm measures 4.5 centimeters.. IMPRESSION: There is an aneurysm in the ascending aorta this measures 5 centimeters. There is moderate atherosclerosis of the aorta. Calcification pattern of the descending thoracic aorta is irregular suggest aortic dissection. Contrast timing is not appropriate for full evaluation of the aorta for dissection. A repeat study with CTA of the aorta would be appropriate in this patient. There is no evidence of pulmonary arterial emboli. Consolidating pneumonia in the left lower lung. Borderline cardiomegaly with mild pericardial effusion. Endotracheal tube ends approximately 1 centimeter above the onur. The above findings are discussed with the patient's ER physician Dr. Chung, at the time of dictation 23:54 central standard time on 12/16/2016
[2016-12-17] MEDS ORDERED: NACL ONE (01:03)
[2016-12-17] MEDS ORDERED: LEVOPHED DRIP 4 MG/NS 250 ML 4 MG/250 ML BAG IV ONE (01:06)
[2016-12-17] MEDS ORDERED: LEVOPHED DRIP 4 MG/NS 250 ML 4 MG/250 ML BAG IV SCH (02:00)
--- NOTE | 2016-12-17 02:08 | Cat Scan Report ---
FINAL REPORT PROCEDURE: CT ANGIO CHEST TECHNIQUE: Computerized tomographic angiography of the chest was performed after the IV injection of iodinated nonionic contrast including image processing. The image data was postprocessed using 2-dimensional multiplanar reformatted (MPR) and 3-dimensional (MIP and/or volume rendered) techniques. HISTORY: CP, Syncope COMPARISON: No prior studies are available for comparison. FINDINGS: There is an aneurysm of the ascending aorta measuring 5.2 centimeters. In the ascending aorta there is this started by dissection which extends in the aortic arch and down the entire length of the descending thoracic aorta to the bifurcation of the common iliac arteries. There is significant atherosclerosis involving the entire aorta. A infrarenal abdominal aortic aneurysm measures 3.9 centimeters. Superior mesenteric artery, celiac axis and inferior mesenteric artery are opacified. The left renal artery opacifies without irregularity. The right kidney is absent. There remains atelectasis/infiltrate in the left lower lung. No effusion or pneumothorax is noted. The endotracheal tube ends just above the onur. The liver size is slightly enlarged. Fatty infiltration is noted. The spleen is unremarkable. The gallbladder is normal. The bowel shows no evidence of obstruction. Moderate fecal debris throughout the colon is noted. There is a large right inguinal hernia cavity, this contains some mesenteric fat and a few loops of nondilated bowel. A smaller left inguinal hernia cavity contains some mesenteric fat. There is a [place] catheter within the urinary bladder. 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 The dissection does not appear to extend into the common iliac arteries. Ascending aortic aneurysm measures 5.2 centimeters. An infrarenal abdominal aortic aneurysm measures 3.9 centimeters. There is significant peripheral atherosclerotic plaque identified throughout the aorta. Atelectasis/infiltrate in the left lower lung. The endotracheal tube ends just above the onur. Bilateral inguinal hernias are identified. A large hernia on the right contains mesenteric fat and a few loops of nondilated bowel. Previous right nephrectomy. The critical findings are discussed with the patient's ER physician Dr. Chung, at the time of dictation 00:55 Central standard time on 12/17/2016
--- NOTE | 2016-12-17 02:11 | Cat Scan Report ---
FINAL REPORT PROCEDURE: CTA abdomen and pelvis, TECHNIQUE: Computerized tomographic angiography of the abdomen and pelvis was performed after the IV injection of iodinated nonionic contrast including image processing. The image data was postprocessed using 2-dimensional multiplanar reformatted (MPR) and 3-dimensional (MIP and/or volume rendered) techniques. HISTORY: CP, Syncope COMPARISON: No prior studies are available for comparison. FINDINGS: There is an aneurysm of the ascending aorta measuring 5.2 centimeters. In the ascending aorta there is this started by dissection which extends in the aortic arch and down the entire length of the descending thoracic aorta to the bifurcation of the common iliac arteries. There is significant atherosclerosis involving the entire aorta. A infrarenal abdominal aortic aneurysm measures 3.9 centimeters. Superior mesenteric artery, celiac axis and inferior mesenteric artery are opacified. The left renal artery opacifies without irregularity. The right kidney is absent. There remains atelectasis/infiltrate in the left lower lung. No effusion or pneumothorax is noted. The endotracheal tube ends just above the onur. The liver size is slightly enlarged. Fatty infiltration is noted. The spleen is unremarkable. The gallbladder is normal. The bowel shows no evidence of obstruction. Moderate fecal debris throughout the colon is noted. There is a large right inguinal hernia cavity, this contains some mesenteric fat and a few loops of nondilated bowel. A smaller left inguinal hernia cavity contains some mesenteric fat. There is a [place] catheter within the urinary bladder. 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 The dissection does not appear to extend into the common iliac arteries. Ascending aortic aneurysm measures 5.2 centimeters. An infrarenal abdominal aortic aneurysm measures 3.9 centimeters. There is significant peripheral atherosclerotic plaque identified throughout the aorta. Atelectasis/infiltrate in the left lower lung. The endotracheal tube ends just above the onur. Bilateral inguinal hernias are identified. A large hernia on the right contains mesenteric fat and a few loops of nondilated bowel. Previous right nephrectomy. The critical findings are discussed with the patient's ER physician Dr. Chung, at the time of dictation 00:55 Central standard time on 12/17/2016
[2016-12-17 03:17] VITALS: BP 104/69
--- NOTE | 2016-12-17 09:20 | XRay Report ---
AP CHEST :12/16/16 20:37 CLINICAL: Post intubation. COMPARISON:08/15/16 FINDINGS: An endotracheal tube is in satisfactory position. Stable mild chronic elevation of left hemidiaphragm. Lungs are clear. The heart is large. Mild central vascular congestion. No pneumothorax. IMPRESSION: Satisfactory position of the endotracheal tube.Cardiomegaly and mild nonspecific central vascular congestion.
--- NOTE | 2016-12-17 09:21 | XRay Report ---
AP CHEST :12/17/16 02:00 CLINICAL: Intubated.Follow up respiratory failure. COMPARISON:12/16/16 20:37 FINDINGS: The endotracheal tube remains in satisfactory position. Stable cardiomegaly. The pulmonary vessels are normal. Chronic elevation of the left hemidiaphragm. The lungs are clear. No pneumothorax. IMPRESSION: Cardiomegaly.No congestive heart failure or pneumonia.
== END 2016-12-17 03:30 | disposition other institution (70) ==
LOC: ED 20:18
DX: J96.90 Respiratory failure, unspecified, unspecified whether with hypoxia or hypercapnia (principal); I10 Essential (primary) hypertension; M19.90 Unspecified osteoarthritis, unspecified site; J45.909 Unspecified asthma, uncomplicated; J44.9 Chronic obstructive pulmonary disease, unspecified; F03.90 Unspecified dementia, unspecified severity, without behavioral disturbance, psychotic disturbance, mood disturbance, and anxiety; Z98.890 Other specified postprocedural states; Z79.82 Long term (current) use of aspirin
CPT/HCPCS: 31500; 36415; 36556; 70450; 71010; 71275; 75635; 80053; 80307; 81001; 82803; 84484; 85025; 85379; 85610; 85730; 86850; 86900; 86901; 86920; 87070; 87205; 93005; 93010; 96361; 96365; 96366; 96368; 99291; J2250; J7030; P9016; Q9967; 94002